=== PATIENT | male | born 1945 ===

== ENCOUNTER 2017-06-07 07:13 | Day surgery (SDC) | payer MEDICARE, MEDICAID ==
[2017-06-07 08:03] VITALS: O2SAT 100
[2017-06-07] MEDS ORDERED: Lactated Ringer's 500 ML IV SCH (09:00)
[2017-06-07] MEDS ORDERED: Propofol 10 mg/ml Inj (20 ML) ONE (09:08)
[2017-06-07] MEDS ORDERED: Lactated Ringer's 1,000 ML IV ONE ×2 (09:13)
[2017-06-07 10:16] VITALS: PULSE 61; TEMP 97.1
[2017-06-07 10:52] VITALS: RESP 15
[2017-06-07 10:54] VITALS: BP 125/70
== END 2017-06-07 10:50 | disposition home or self-care (01) ==
LOC: C.ENDO 07:13
PROVIDERS: ATTEND Internal Medicine Gastroenterology
DX: Z12.11 Encounter for screening for malignant neoplasm of colon (principal); Z79.899 Other long term (current) drug therapy; Z79.4 Long term (current) use of insulin; Z95.1 Presence of aortocoronary bypass graft; E11.9 Type 2 diabetes mellitus without complications; E78.5 Hyperlipidemia, unspecified; I10 Essential (primary) hypertension; K59.00 Constipation, unspecified; I25.10 Atherosclerotic heart disease of native coronary artery without angina pectoris; M19.90 Unspecified osteoarthritis, unspecified site; Z82.49 Family history of ischemic heart disease and other diseases of the circulatory system; Z83.3 Family history of diabetes mellitus; K64.8 Other hemorrhoids; D12.2 Benign neoplasm of ascending colon
CPT/HCPCS: 45380; 82948; 88305; J2704; J7120

== ENCOUNTER 2017-09-17 09:59 | Inpatient (IN) | payer MEDICARE, MEDICAID ==
[2017-09-17 10:00] VITALS: BMI 31.4
--- NOTE | 2017-09-17 10:36 | C.PDOC ---
History Of Present Illness VIA TRANS 71-YEAR-OLD MALE, PRESENTS TO THE EMERGENCY DEPARTMENT, PATIENT IS REFERRED BY PMD AND DR ALVA FOR ADMISSION, PENDING COLON MASS SURGERY ON 09/19. R SIDED ABD PAIN X 1 MO. NO FEVER, NV. EXAM NEG MDM OLD RECORDS REVIEWED. SP FULL OUTPT EVAL OF ABD PAIN. Time Seen by Provider: 09/17/17 10:24 Chief Complaint (Nursing): Medical Clearance History Per: Patient History/Exam Limitations: no limitations Current Symptoms Are (Timing): Still Present Severity: Moderate Past Medical History Reviewed: Historical Data, Nursing Documentation, Vital Signs Vital Signs: Last Vital Signs Temp 98.0 F 09/17/17 15:00 Pulse 66 09/17/17 15:00 Resp 20 09/17/17 15:00 BP 154/72 H 09/17/17 15:00 Pulse Ox 96 09/17/17 15:00 - Medical History PMH: Arthritis, HTN, Hypercholesterolemia Surgical History: CABG (1999), Endoscopy Family History: States: No Known Family Hx - Social History Hx Alcohol Use: No Hx Substance Use: No Review Of Systems Constitutional: Negative for: Fever, Chills Cardiovascular: Negative for: Chest Pain, Palpitations Respiratory: Negative for: Shortness of Breath Gastrointestinal: Negative for: Nausea, Vomiting, Abdominal Pain Musculoskeletal: Negative for: Back Pain Skin: Negative for: Rash Neurological: Negative for: Weakness, Numbness, Headache, Dizziness Physical Exam - Physical Exam Appears: Non-toxic, No Acute Distress Skin: Normal Color, Warm, Dry, No Rash Head: Normacephalic Eye(s): bilateral: Normal Inspection, PERRL, EOMI Nose: Normal Oral Mucosa: Moist Lips: Normal Appearing Neck: Normal ROM Cardiovascular: Rhythm Regular, No Murmur Respiratory: Normal Breath Sounds, No Accessory Muscle Use Gastrointestinal/Abdominal: Soft, No Tenderness Extremity: Normal ROM, No Deformity, No Swelling Neurological/Psych: Oriented x3, Normal Speech ED Course And Treatment - Laboratory Results Result Diagrams: 09/17/17 10:50 09/17/17 10:50 ECG: Interpreted By Me ECG Rhythm: 1st Degree HB Rate From EC O2 Sat by Pulse Oximetry: 99 (RA) Pulse Ox Interpretation: Normal - Radiology CXR: Interpreted by Me CXR Interpretation: Yes: No Acute Disease Progress - Re-Evaluation Re-evaluation Note: 09/17/17 10:33 D/W DR NERI: STATES PT REQUIRES MED CLEARANCE. ADMIT TO HIS SERVICE, WILL CONSULT HOSP AND DR ARCOS. SURG RESIDENT NOTIFIED - Data Reviewed Data Reviewed: Lab, Diagnostic imaging, EKG, Old records Medical Decision Making Medical Decision Making: OLD RECORDS REVIEWED. SP FULL OUTPT EVAL OF ABD PAIN. Disposition Counseled Patient/Family Regarding: Studies Performed, Diagnosis - Disposition Disposition: HOSPITALIZED Disposition Time: 10:36 Condition: STABLE - POA Present On Arrival: Poor Glycemic Control - Clinical Impression Clinical Impression: Colonic mass, Abdominal pain - Scribe Statement The provider has reviewed the documentation as recorded by the Scribe (Julieta Firtz) All medical record entries made by the Scribe were at my direction and personally dictated by me. I have reviewed the chart and agree that the record accurately reflects my personal performance of the history, physical exam, medical decision making, and the department course for this patient. I have also personally directed, reviewed, and agree with the discharge instructions and disposition. Decision To Admit - Pt Status Changed To: Hospital Disposition Of: Inpatient - Admit Certification Admit to Inpatient:: After my assessment, the patient will require hospitalization for at least two midnights. This is because of the severity of symptoms shown, intensity of services needed, and/or the medical risk in this patient being treated as an outpatient. - InPatient: Physician Admission Certification: I certify that this patient requires 2 or more midnights of care for the following reason:: SEE NOTE - . Bed Request Type: Regular Admitting Physician: Arian Neri Patient Diagnosis: Colonic mass, Abdominal pain
[2017-09-17] MEDS ORDERED: Sodium Chloride 0.9% 1,000 ML IV ONE (10:38)
[2017-09-17] MEDS ORDERED: Sodium Chloride 0.9% 1,000 ML ONE (10:52)
[2017-09-17 11:03] LABS: BASO # 0.1 K/uL (0.0-0.2); BASO % 0.8 % (0.0-2.0); EOS # 0.3 K/uL (0.0-0.7); EOS % 3.8 % (0.0-4.0); HEMOGLOBIN 11.7 g/dL (12.0-18.0); LYMPH % 27.5 % (20.0-40.0); MEAN CELL VOLUME 80.3 fL (80.0-94.0); MEAN CORPUSCULAR HGB CONC 34.8 g/dL (33.0-37.0); MEAN PLATELET VOLUME 9.9 fL (7.2-11.7); MONO # 0.3 K/uL (0.0-0.8); MONO % 4.1 % (0.0-10.0); NEUT # 4.7 K/uL (1.8-7.0); NEUT % 63.8 % (50.0-75.0); RBC 4.2 Mil/uL (4.40-5.90); RED CELL DISTRIBUTION WIDTH 14.3 % (11.5-14.5); WHITE BLOOD COUNT 7.3 K/uL (4.8-10.8)
[2017-09-17 11:04] LABS: PROTHROMBIN TIME 11.4 SECONDS (9.7-12.2)
[2017-09-17 11:09] LABS: ALB/GLOB RATIO 1.1 (1.0-2.1); ALT/SGPT 30 U/L (21-72); AST/SGOT 25 U/L (17-59); BLOOD UREA NITROGEN 26 mg/dL (9-20); CALCIUM 9.1 mg/dl (8.6-10.4); GFR AFRICAN-AMERICAN > 60; GFR NON-AFRICAN AMERICAN 54
[2017-09-17] MEDS ORDERED: (Novolog Mix 70/30) Insulin Aspart/Insulin Aspar 100 units/ml SC PRN (11:21)
--- NOTE | 2017-09-17 11:38 | RAD ---
HISTORY: Pre Op COMPARISON: Chest radiographs 06/29/2017. TECHNIQUE: Chest PA and lateral FINDINGS: LUNGS: No acute infiltrate bilaterally. Chronic fibrotic changes in the inferior left lung zone. PLEURA: No significant pleural effusion identified. No pneumothorax apparent. CARDIOVASCULAR: Normal. OSSEOUS STRUCTURES: Sternotomy wires again noted. VISUALIZED UPPER ABDOMEN: Normal. OTHER FINDINGS: None. IMPRESSION: No acute cardiopulmonary disease appreciated. Stable left basilar fibrosis.
[2017-09-17 11:40] LABS: URINE BILIRUBIN NEGATIVE (NEGATIVE); URINE BLOOD NEGATIVE (NEGATIVE); URINE CLARITY Clear (Clear); URINE COLOR Yellow (YELLOW); URINE GLUCOSE (UA) 3+ mg/dL (Normal); URINE HYALINE CAST 0-2 /lpf (0-2); URINE LEUKOCYTE ESTERASE NEG Leu/uL (Negative); URINE PROTEIN 1+ mg/dL (NEGATIVE); URINE UROBILINOGEN NORMAL mg/dL (0.2-1.0)
--- NOTE | 2017-09-17 11:40 | CP.PCM.HP ---
<Jaden Dalal - Last Filed: 09/17/17 11:37> History of Present Illness - History of Present Illness History of Present Illness: General Surgery H&P for Dr. Aranda This is a 71M with a PMH of DM, HTN, CAD, HLD, and a surgical history of open heart quadruple bypass over ten years ago. In May the patient underwnet his first colonoscopy which was significant for 40mm villous polypoid lesion at the ileocecal valve. 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 Patient denies any unintentional weight changes however he does report a vague discomfort n his right lower abdomen that is chronic. He denies any fevers chills chest pain nausea vomiting or diarrhea. PMH:DM, HTN, CAD, HLD PSH: Open heart bypass X4, Eye surgery, Testicular surgery ALL: NKDA Social: Denies Tobacco, ETOH, Drugs Present on Admission - Present on Admission Any Indicators Present on Admission: No Review of Systems - Review of Systems All systems: reviewed and no additional remarkable complaints except - Constitutional Constitutional: absent: Anorexia, Chills, Fever - EENT Eyes: absent: Change in Vision, Loss of Vision Ears: absent: Disequilibrium, Dizziness - Cardiovascular Cardiovascular: absent: Chest Pain, Dyspnea - Respiratory Respiratory: absent: Cough, Dyspnea, Dyspnea on Exertion - Gastrointestinal Gastrointestinal: Abdominal Pain. absent: Diarrhea, Nausea, Vomiting - Genitourinary Genitourinary: absent: Difficulty Urinating, Dysuria - Musculoskeletal Musculoskeletal: absent: Arthralgias, Myalgias Past Patient History - Past Medical History & Family History Past Medical History?: Yes - Past Social History Smoking Status: Never Smoked - CARDIAC Hx Hypercholesterolemia: Yes Hx Hypertension: Yes Hx Pacemaker: No - PULMONARY Hx Respiratory Disorders: No - NEUROLOGICAL Hx Paralysis: No - HEENT Hx HEENT Problems: Yes - RENAL Hx Chronic Kidney Disease: No - ENDOCRINE/METABOLIC Hx Endocrine Disorders: Yes Hx Diabetes Mellitus Type 1: Yes - HEMATOLOGICAL/ONCOLOGICAL Hx Blood Transfusions: No - INTEGUMENTARY Hx Dermatological Problems: No - MUSCULOSKELETAL/RHEUMATOLOGICAL Hx Arthritis: Yes - GASTROINTESTINAL Hx Gastrointestinal Disorders: No - GENITOURINARY/GYNECOLOGICAL Hx Genitourinary Disorders: No - PSYCHIATRIC Hx Substance Use: No - SURGICAL HISTORY Hx Coronary Artery Bypass Graft: Yes (1999) - ANESTHESIA Hx Anesthesia Reactions: No Hx Malignant Hyperthermia: No Meds Allergies/Adverse Reactions: Allergies Allergy/AdvReac Type Severity Reaction Status Date / Time No Known Allergies Allergy Verified 09/17/17 10:07 Physical Exam - Constitutional Appears: Non-toxic, No Acute Distress - Head Exam Head Exam: ATRAUMATIC, NORMOCEPHALIC - Eye Exam Eye Exam: EOMI, Normal appearance - ENT Exam ENT Exam: Mucous Membranes Moist - Respiratory Exam Respiratory Exam: NORMAL BREATHING PATTERN - Cardiovascular Exam Cardiovascular Exam: +S1, +S2 - GI/Abdominal Exam GI & Abdominal Exam: Normal Bowel Sounds, Soft, Tenderness (Mild tenderness to deep palpation ). absent: Distended, Firm, Guarding, Hernia, Rigid - Rectal Exam Additional comments: Perianal Skin tag - Extremities Exam Extremities exam: Positive for: normal inspection Additional comments: radial pulse 2+ - Neurological Exam Neurological exam: Alert, Oriented x3 - Psychiatric Exam Psychiatric exam: Normal Affect, Normal Mood - Skin Skin Exam: Dry, Intact Results - Vital Signs Recent Vital Signs: Last Vital Signs Temp 97.5 F L 09/17/17 10:05 Pulse 72 09/17/17 10:05 Resp 16 09/17/17 10:05 BP 120/63 09/17/17 10:05 Pulse Ox 99 09/17/17 11:07 - Labs Result Diagrams: 09/17/17 10:50 09/17/17 10:50 Labs: Laboratory Results - last 24 hr 09/17/17 09/17/17 09/17/17 10:50 10:50 10:50 WBC 7.3 RBC 4.20 L Hgb 11.7 L Hct 33.7 L MCV 80.3 MCH 28.0 MCHC 34.8 RDW 14.3 Plt Count 197 MPV 9.9 Neut % (Auto) 63.8 Lymph % (Auto) 27.5 Sebastian % (Auto) 4.1 Eos % (Auto) 3.8 Baso % (Auto) 0.8 Neut # (Auto) 4.7 Lymph # (Auto) 2.0 Sebastian # (Auto) 0.3 Eos # (Auto) 0.3 Baso # (Auto) 0.1 PT 11.4 INR 1.0 APTT 35 H Sodium 138 Potassium 4.9 Chloride 102 Carbon Dioxide 27 Anion Gap 14 BUN 26 H Creatinine 1.3 Est GFR ( Amer) > 60 Est GFR (Non-Af Amer) 54 Random Glucose 315 H Calcium 9.1 Total Bilirubin 0.7 AST 25 ALT 30 Alkaline Phosphatase 86 Total Protein 7.4 Albumin 4.0 Globulin 3.5 Albumin/Globulin Ratio 1.1 Blood Type Antibody Screen 09/17/17 10:50 WBC RBC Hgb Hct MCV MCH MCHC RDW Plt Count MPV Neut % (Auto) Lymph % (Auto) Sebastian % (Auto) Eos % (Auto) Baso % (Auto) Neut # (Auto) Lymph # (Auto) Sebastian # (Auto) Eos # (Auto) Baso # (Auto) PT INR APTT Sodium Potassium Chloride Carbon Dioxide Anion Gap BUN Creatinine Est GFR ( Amer) Est GFR (Non-Af Amer) Random Glucose Calcium Total Bilirubin AST ALT Alkaline Phosphatase Total Protein Albumin Globulin Albumin/Globulin Ratio Blood Type O POSITIVE Antibody Screen Negative Assessment & Plan - Assessment and Plan (Free Text) Assessment: 71M with Colon mass Plan: Admit to Dr. Aranda service Restart Home medications Consult Medicine for medical management Consult Dr. Raphael Cardiology AM labs Plan for OR later this week D/W Dr. Manoj Dalal PGY2 <Arian Aranda B - Last Filed: 09/21/17 17:01> Results - Vital Signs Recent Vital Signs: Last Vital Signs Temp 98.7 F 09/21/17 15:50 Pulse 68 09/21/17 15:50 Resp 18 09/21/17 15:50 BP 152/74 H 09/21/17 15:50 Pulse Ox 95 09/21/17 15:50 - Labs Result Diagrams: 09/21/17 07:38 09/21/17 07:38 Labs: Laboratory Results - last 24 hr 09/20/17 09/21/17 09/21/17 20:55 06:19 07:38 WBC RBC Hgb Hct MCV MCH MCHC RDW Plt Count MPV Neut % (Auto) Lymph % (Auto) Sebastian % (Auto) Eos % (Auto) Baso % (Auto) Neut # (Auto) Lymph # (Auto) Sebastian # (Auto) Eos # (Auto) Baso # (Auto) Sodium 139 Potassium 4.1 Chloride 105 Carbon Dioxide 26 Anion Gap 13 BUN 14 Creatinine 1.1 Est GFR ( Amer) > 60 Est GFR (Non-Af Amer) > 60 POC Glucose (mg/dL) 239 H 204 H Random Glucose 210 H Calcium 8.6 Phosphorus 2.4 L Magnesium 1.6 Total Bilirubin 0.5 AST 30 ALT 21 D Alkaline Phosphatase 70 Total Protein 6.5 Albumin 3.2 L Globulin 3.3 Albumin/Globulin Ratio 1.0 09/21/17 09/21/17 09/21/17 07:38 11:21 16:28 WBC 10.5 RBC 3.84 L Hgb 10.7 L Hct 30.9 L MCV 80.5 MCH 27.8 MCHC 34.5 RDW 14.2 Plt Count 168 MPV 9.6 Neut % (Auto) 79.0 H Lymph % (Auto) 14.0 L Sebastian % (Auto) 4.1 Eos % (Auto) 2.4 Baso % (Auto) 0.5 Neut # (Auto) 8.3 H Lymph # (Auto) 1.5 Sebastian # (Auto) 0.4 Eos # (Auto) 0.3 Baso # (Auto) 0.1 Sodium Potassium Chloride Carbon Dioxide Anion Gap BUN Creatinine Est GFR ( Amer) Est GFR (Non-Af Amer) POC Glucose (mg/dL) 315 H 256 H Random Glucose Calcium Phosphorus Magnesium Total Bilirubin AST ALT Alkaline Phosphatase Total Protein Albumin Globulin Albumin/Globulin Ratio Attending/Attestation - Attestation I have personally seen and examined this patient.: Yes I have fully participated in the care of the patient.: Yes I have reviewed all pertinent clinical information: Yes Notes (Text): Pt is seen and examined at bedside Agree with above note and assessment Pt with Ascending colon mass, Tubulovillous adenoma Pt is c/o abdominal pain, intermittent with bloating Abdomen: Soft, NT, ND Labs and radiology reviewed Plan: Cardiology clearance, Bowel prep Preop antibiotics Plan d.w pt in detail Risk and benefit explained in detail.
--- NOTE | 2017-09-17 14:13 | CP.PCM.CON ---
<Meenu Egan - Last Filed: 09/17/17 16:57> History of Present Illness - History of Present Illness History of Present Illness: Full Code Denies Advanced Directive Health Proxy: Joellen Pereyra () #[phone] Medicine Consult: 71 year old male with past medical history as noted below is in the hospital for removal of a colonic mass. Patient underwent a colonoscopy in May 2017 which found a tubulovillous adenoma. Patient states he has minor right lower abdominal pain but otherwise states he has no complaints. Patient denies chest pain, shortness of breath, palpitations, fever, nausea, vomiting, diarrhea , constipation or dysuria. PMD: Dr. 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 Past Surgical History: CABG 15 years ago; Cataract surgery; Hernia repair 40 years ago; Colonoscopy 05/2017 Medications: Losartan 100mg daily; Novolog 70/30 (patient does not know how many units he uses daily); Lipitor 80mg HS; Aspirin 81mg daily; Tramadol 50mg po tid; Metoprolol Succinate 25mg po daily Allergies: NKDA Family History: Dad - heart disease; Mom - diabetes Social History: Lives with ; retired; worked delivering meat; Denies smoking , alcohol or illicit drug use Review of Systems - Constitutional Constitutional: absent: Chills, Fever, Headache - EENT Eyes: Blurred Vision, Other (blind in the left eye; decreased vision in the right eye ) Nose/Mouth/Throat: absent: Nasal Congestion, Sore Throat - Cardiovascular Cardiovascular: absent: Chest Pain, Chest Pain at Rest, Dyspnea, Dyspnea on Exertion, Palpitations, Pedal Edema - Respiratory Respiratory: absent: Dyspnea - Gastrointestinal Gastrointestinal: Abdominal Pain (minor right lower abdominal pain ). absent: Constipation, Diarrhea, Nausea, Vomiting - Genitourinary Genitourinary: absent: Dysuria - Musculoskeletal Musculoskeletal: absent: Numbness, Tingling - Neurological Neurological: absent: Dizziness, Headaches - Endocrine Endocrine: absent: Palpitations Past Patient History - Past Medical History & Family History Past Medical History?: Yes - Past Social History Smoking Status: Never Smoked - CARDIAC Hx Hypercholesterolemia: Yes Hx Hypertension: Yes Hx Pacemaker: No - PULMONARY Hx Respiratory Disorders: No - NEUROLOGICAL Hx Paralysis: No - HEENT Hx HEENT Problems: Yes - RENAL Hx Chronic Kidney Disease: No - ENDOCRINE/METABOLIC Hx Endocrine Disorders: Yes Hx Diabetes Mellitus Type 1: Yes - HEMATOLOGICAL/ONCOLOGICAL Hx Blood Transfusions: No - INTEGUMENTARY Hx Dermatological Problems: No - MUSCULOSKELETAL/RHEUMATOLOGICAL Hx Arthritis: Yes - GASTROINTESTINAL Hx Gastrointestinal Disorders: No - GENITOURINARY/GYNECOLOGICAL Hx Genitourinary Disorders: No - PSYCHIATRIC Hx Substance Use: No - SURGICAL HISTORY Hx Coronary Artery Bypass Graft: Yes (1999) - ANESTHESIA Hx Anesthesia Reactions: No Hx Malignant Hyperthermia: No Meds Allergies/Adverse Reactions: Allergies Allergy/AdvReac Type Severity Reaction Status Date / Time No Known Allergies Allergy Verified 09/17/17 10:07 - Medications Medications: Current Medications Enoxaparin Sodium (Lovenox) 30 mg SC 1000,2200 [facility] Home Med (Atorvastatin [Lipitor]) 1 tab PO DAILY [facility] Sodium Chloride (Sodium Chloride 0.9%) 1,000 mls @ 100 mls/hr IV .Q10H ONE Stop: 09/17/17 20:37 Last Admin: 09/17/17 10:55 Dose: 100 mls/hr Insulin Aspart (Novolog) 0 unit SC ACHS [facility] PRN Reason: Protocol Losartan Potassium (Cozaar) 1 mg PO DAILY [facility] Metoprolol Succinate (Toprol Xl) 25 mg PO DAILY [facility] Spironolactone (Aldactone) 25 mg PO DAILY [facility] Physical Exam - Constitutional Appears: No Acute Distress - Head Exam Head Exam: ATRAUMATIC, NORMAL INSPECTION - Eye Exam Additional comments: Left eye- clouding - ENT Exam ENT Exam: Mucous Membranes Dry - Respiratory Exam Respiratory Exam: NORMAL BREATHING PATTERN Additional comments: Bilateral Lower Lungs - crackles - Cardiovascular Exam Cardiovascular Exam: REGULAR RHYTHM, +S1, +S2 - GI/Abdominal Exam GI & Abdominal Exam: Normal Bowel Sounds, Soft. absent: Tenderness - Extremities Exam Extremities exam: Positive for: normal capillary refill, normal inspection, pedal pulses present - Neurological Exam Neurological exam: Alert, CN II-XII Intact, Oriented x3 - Expanded Neurological Exam Expanded Patient oriented to: person, place, time Neuro motor strength exam: Left Upper Extremity: 5, Right Upper Extremity: 5, Left Lower Extremity: 5, Right Lower Extremity: 5 Coma Scale Eye Opening: SPONTANEOUS Coma Scale Motor Response: OBEYS COMMANDS - Psychiatric Exam Psychiatric exam: Normal Affect, Normal Mood - Skin Skin Exam: Normal Color Results - Vital Signs Recent Vital Signs: Last Vital Signs Temp 98.1 F 09/17/17 12:03 Pulse 64 09/17/17 12:03 Resp 18 09/17/17 12:03 BP 142/70 09/17/17 12:03 Pulse Ox 96 09/17/17 12:03 - Labs Result Diagrams: 09/17/17 10:50 09/17/17 10:50 Labs: Laboratory Results - last 24 hr 09/17/17 09/17/17 09/17/17 10:50 10:50 10:50 WBC 7.3 RBC 4.20 L Hgb 11.7 L Hct 33.7 L MCV 80.3 MCH 28.0 MCHC 34.8 RDW 14.3 Plt Count 197 MPV 9.9 Neut % (Auto) 63.8 Lymph % (Auto) 27.5 [place] % (Auto) 4.1 Eos % (Auto) 3.8 Baso % (Auto) 0.8 Neut # (Auto) 4.7 Lymph # (Auto) 2.0 [place] # (Auto) 0.3 Eos # (Auto) 0.3 Baso # (Auto) 0.1 PT 11.4 INR 1.0 APTT 35 H Sodium 138 Potassium 4.9 Chloride 102 Carbon Dioxide 27 Anion Gap 14 BUN 26 H Creatinine 1.3 Est GFR ( Amer) > 60 Est GFR (Non-Af Amer) 54 POC Glucose (mg/dL) Random Glucose 315 H Calcium 9.1 Total Bilirubin 0.7 AST 25 ALT 30 Alkaline Phosphatase 86 Total Protein 7.4 Albumin 4.0 Globulin 3.5 Albumin/Globulin Ratio 1.1 Urine Color Urine Clarity Urine pH Ur Specific [place] Urine Protein Urine Glucose (UA) Urine Ketones Urine Blood Urine Nitrate Urine Bilirubin Urine Urobilinogen Ur Leukocyte Esterase Urine WBC (Auto) Urine RBC (Auto) Hyaline Casts Blood Type Antibody Screen 09/17/17 09/17/17 09/17/17 10:50 10:56 12:05 WBC RBC Hgb Hct MCV MCH MCHC RDW Plt Count MPV Neut % (Auto) Lymph % (Auto) [place] % (Auto) Eos % (Auto) Baso % (Auto) Neut # (Auto) Lymph # (Auto) [place] # (Auto) Eos # (Auto) Baso # (Auto) PT INR APTT Sodium Potassium Chloride Carbon Dioxide Anion Gap BUN Creatinine Est GFR ( Amer) Est GFR (Non-Af Amer) POC Glucose (mg/dL) 210 H Random Glucose Calcium Total Bilirubin AST ALT Alkaline Phosphatase Total Protein Albumin Globulin Albumin/Globulin Ratio Urine Color Yellow Urine Clarity Clear Urine pH 6.0 Ur Specific [place] 1.009 Urine Protein 1+ H Urine Glucose (UA) 3+ H Urine Ketones Negative Urine Blood Negative Urine Nitrate Negative Urine Bilirubin Negative Urine Urobilinogen Normal Ur Leukocyte Esterase Neg Urine WBC (Auto) < 1 Urine RBC (Auto) 1 Hyaline Casts 0-2 Blood Type O POSITIVE Antibody Screen Negative Assessment & Plan - Assessment and Plan (Free Text) Assessment: 1.) Tubulousvillous Adenoma - Management per primary team: Dr. Aranda - Pending Medical Optimization - Detski Score: 5 --> 6% risk of complications - EKG: NSR at 60bpm; Type I AV block; prior ischemia shown on leads I and II - Chest Xray: No acute cardiopulmonary disease appreciated. Stable left basilar fibrosis. - ECHO (07/05/17): LVEF 65%; mild left ventricular hypertrophy (please see report for full details) - Cardio Consult: Dr. Raphael --> help appreciated 2.) History of CABG in 2002 - Continue home medications * Losartan 100mg daily * Aspirin 81mg po daily * Metoprolol Succinate 25mg daily * Crestor 40mg po HS - ECHO (07/05/17): LVEF 65%; mild left ventricular hypertrophy (please see report for full details) 3.) History of HTN Continue home medications * Metoprolol Succinate 25mg daily * Losartan 100mg daily 4.) History of CAD - Crestor 40mg po HS - Lipid Profile (07/30/17): Triglycerides 107; Total Cholesterol 233; LDL 108; HDL 56 5.) History of DM Type II - ISS - Patient does not know how many usints of Novolog he uses therefor will monitor accuchecks based on total units used will restart Novolog - Accuchecks - Hypoglycemia Protocol 6.) Prophylaxis - Lovenox 40SC - will be placed on hold tomorrow 09/18/17 - SCDs - GI prophylaxis not indicated at this time Case discussed with Dr. Jeff Egan PGY-1 <Alejandro Aguilar - Last Filed: 09/17/17 19:04> Meds - Medications Medications: Current Medications Dextrose (Dextrose 50% Inj) 0 ml IV STAT PRN; Protocol PRN Reason: Hypoglycemia Protocol Dextrose (Glutose 15) 0 gm PO ONCE PRN; Protocol PRN Reason: Hypoglycemia Protocol Enoxaparin Sodium (Lovenox) 40 mg SC DAILY [facility] Glucagon (Glucagen Diagnostic Kit) 0 mg IM STAT PRN; Protocol PRN Reason: Hypoglycemia Protocol Dextrose (Dextrose 5% In Water 1000 Ml) 1,000 mls @ 0 mls/hr IV .Q0M PRN; Protocol; Per Protocol PRN Reason: Hypoglycemia Protocol Insulin Aspart (Novolog) 0 unit SC ACHS [facility] PRN Reason: Protocol Last Admin: 09/17/17 16:47 Dose: 4 unit Losartan Potassium (Cozaar) 100 mg PO DAILY [facility] Metoprolol Succinate (Toprol Xl) 25 mg PO DAILY [facility] Rosuvastatin Calcium (Crestor) 40 mg PO HS [facility] Spironolactone (Aldactone) 25 mg PO DAILY [facility] Results - Vital Signs Recent Vital Signs: Last Vital Signs Temp 98.0 F 09/17/17 15:00 Pulse 66 09/17/17 15:00 Resp 20 09/17/17 15:00 BP 154/72 H 09/17/17 15:00 Pulse Ox 99 09/17/17 16:55 - Labs Result Diagrams: 09/17/17 10:50 09/17/17 10:50 Labs: Laboratory Results - last 24 hr 09/17/17 09/17/17 09/17/17 10:50 10:50 10:50 WBC 7.3 RBC 4.20 L Hgb 11.7 L Hct 33.7 L MCV 80.3 MCH 28.0 MCHC 34.8 RDW 14.3 Plt Count 197 MPV 9.9 Neut % (Auto) 63.8 Lymph % (Auto) 27.5 [place] % (Auto) 4.1 Eos % (Auto) 3.8 Baso % (Auto) 0.8 Neut # (Auto) 4.7 Lymph # (Auto) 2.0 [place] # (Auto) 0.3 Eos # (Auto) 0.3 Baso # (Auto) 0.1 PT 11.4 INR 1.0 APTT 35 H Sodium 138 Potassium 4.9 Chloride 102 Carbon Dioxide 27 Anion Gap 14 BUN 26 H Creatinine 1.3 Est GFR ( Amer) > 60 Est GFR (Non-Af Amer) 54 POC Glucose (mg/dL) Random Glucose 315 H Calcium 9.1 Total Bilirubin 0.7 AST 25 ALT 30 Alkaline Phosphatase 86 Total Protein 7.4 Albumin 4.0 Globulin 3.5 Albumin/Globulin Ratio 1.1 Urine Color Urine Clarity Urine pH Ur Specific [place] Urine Protein Urine Glucose (UA) Urine Ketones Urine Blood Urine Nitrate Urine Bilirubin Urine Urobilinogen Ur Leukocyte Esterase Urine WBC (Auto) Urine RBC (Auto) Hyaline Casts Blood Type Antibody Screen 09/17/17 09/17/17 09/17/17 10:50 10:56 12:05 WBC RBC Hgb Hct MCV MCH MCHC RDW Plt Count MPV Neut % (Auto) Lymph % (Auto) [place] % (Auto) Eos % (Auto) Baso % (Auto) Neut # (Auto) Lymph # (Auto) [place] # (Auto) Eos # (Auto) Baso # (Auto) PT INR APTT Sodium Potassium Chloride Carbon Dioxide Anion Gap BUN Creatinine Est GFR ( Amer) Est GFR (Non-Af Amer) POC Glucose (mg/dL) 210 H Random Glucose Calcium Total Bilirubin AST ALT Alkaline Phosphatase Total Protein Albumin Globulin Albumin/Globulin Ratio Urine Color Yellow Urine Clarity Clear Urine pH 6.0 Ur Specific [place] 1.009 Urine Protein 1+ H Urine Glucose (UA) 3+ H Urine Ketones Negative Urine Blood Negative Urine Nitrate Negative Urine Bilirubin Negative Urine Urobilinogen Normal Ur Leukocyte Esterase Neg Urine WBC (Auto) < 1 Urine RBC (Auto) 1 Hyaline Casts 0-2 Blood Type O POSITIVE Antibody Screen Negative 09/17/17 16:07 WBC RBC Hgb Hct MCV MCH MCHC RDW Plt Count MPV Neut % (Auto) Lymph % (Auto) [place] % (Auto) Eos % (Auto) Baso % (Auto) Neut # (Auto) Lymph # (Auto) [place] # (Auto) Eos # (Auto) Baso # (Auto) PT INR APTT Sodium Potassium Chloride Carbon Dioxide Anion Gap BUN Creatinine Est GFR ( Amer) Est GFR (Non-Af Amer) POC Glucose (mg/dL) 255 H Random Glucose Calcium Total Bilirubin AST ALT Alkaline Phosphatase Total Protein Albumin Globulin Albumin/Globulin Ratio Urine Color Urine Clarity Urine pH Ur Specific [place] Urine Protein Urine Glucose (UA) Urine Ketones Urine Blood Urine Nitrate Urine Bilirubin Urine Urobilinogen Ur Leukocyte Esterase Urine WBC (Auto) Urine RBC (Auto) Hyaline Casts Blood Type Antibody Screen Attending/Attestation - Attestation I have personally seen and examined this patient.: Yes I have fully participated in the care of the patient.: Yes I have reviewed all pertinent clinical information: Yes Notes (Text): 09/17/17 19:04 Patient was seen and examined with the resident Dr. Egan History, Physical, Assessment and Plan and orders were discussed with Dr. Egan. Alejandro Aguilar D.O.
[2017-09-17] MEDS: (Novolog) Insulin Aspart, Recombinant 100 u/ml 10 ml vial SC SCH ×2 (16:47→21:10)
[2017-09-17] MEDS ORDERED: Dextrose 50% SYRINGE Inj (50 ml) IV PRN (17:02)
[2017-09-17] MEDS ORDERED: Glucagon Recombinant 1 mg Inj IM PRN (17:02)
[2017-09-17] MEDS: Metoprolol Succinate 25 mg XL Tab PO SCH (21:08)
[2017-09-17] MEDS ORDERED: Enoxaparin 30 mg Syringe SC SCH (22:00)
--- NOTE | 2017-09-18 07:25 | CP.PCM.PN ---
<Meenu Egan NitinAnali - Last Filed: 09/18/17 15:23> Subjective - Date & Time of Evaluation Date of Evaluation: 09/18/17 Time of Evaluation: 07:00 - Subjective Subjective: Medicine Progress Note: Patient was seen and examined at bedside in the AM. Patient is not in acute stress. Patient states he has minor right lower abdominal pain but otherwise states he has no complaints. Patient denies chest pain, shortness of breath, palpitations, fever, nausea, vomiting, diarrhea, constipation or dysuria. Objective - Vital Signs/Intake and Output Vital Signs (last 24 hours): Temp Pulse Resp BP Pulse Ox 98.1 F 64 20 141/68 98 09/18/17 00:04 09/18/17 00:04 09/18/17 00:04 09/18/17 00:04 09/18/17 00:04 Intake and Output: 09/18/17 09/18/17 06:59 18:59 Intake Total 1780 Balance 1780 - Medications Medications: Current Medications Dextrose (Dextrose 50% Inj) 0 ml IV STAT PRN; Protocol PRN Reason: Hypoglycemia Protocol Dextrose (Glutose 15) 0 gm PO ONCE PRN; Protocol PRN Reason: Hypoglycemia Protocol Enoxaparin Sodium (Lovenox) 40 mg SC DAILY [facility] Glucagon (Glucagen Diagnostic Kit) 0 mg IM STAT PRN; Protocol PRN Reason: Hypoglycemia Protocol Dextrose (Dextrose 5% In Water 1000 Ml) 1,000 mls @ 0 mls/hr IV .Q0M PRN; Protocol; Per Protocol PRN Reason: Hypoglycemia Protocol Insulin Aspart (Novolog) 0 unit SC ACHS [facility] PRN Reason: Protocol Last Admin: 09/17/17 21:10 Dose: Not Given Losartan Potassium (Cozaar) 100 mg PO DAILY [facility] Metoprolol Succinate (Toprol Xl) 25 mg PO DAILY [facility] Last Admin: 09/17/17 21:08 Dose: 25 mg Rosuvastatin Calcium (Crestor) 40 mg PO HS [facility] Last Admin: 09/17/17 21:08 Dose: 40 mg Spironolactone (Aldactone) 25 mg PO DAILY [facility] - Labs Labs: 09/17/17 10:50 09/17/17 10:50 PT 11.4 SECONDS (9.7-12.2) 09/17/17 10:50 INR 1.0 09/17/17 10:50 APTT 35 SECONDS (21-34) H 09/17/17 10:50 - Constitutional Appears: No Acute Distress - Head Exam Head Exam: ATRAUMATIC, NORMAL INSPECTION - Eye Exam Eye Exam: EOMI, Normal appearance Additional comments: Left eye- clouding - ENT Exam ENT Exam: Mucous Membranes Moist - Respiratory Exam Respiratory Exam: NORMAL BREATHING PATTERN Additional comments: Bilateral Lower Lungs - crackles - Cardiovascular Exam Cardiovascular Exam: REGULAR RHYTHM, +S1, +S2 - GI/Abdominal Exam GI & Abdominal Exam: Soft, Normal Bowel Sounds. absent: Tenderness - Extremities Exam Extremities Exam: Normal Inspection - Neurological Exam Neurological Exam: Alert, Awake, Oriented x3 - Psychiatric Exam Psychiatric exam: Normal Affect - Skin Skin Exam: Normal Color Assessment and Plan - Assessment and Plan (Free Text) Assessment: 1.) Tubulousvillous Adenoma - Management per primary team: Dr. Aranda - Medically Optimized pending Cardiology - Detski Score: 5 --> 6% risk of complications - EKG: NSR at 60bpm; Type I AV block; prior ischemia shown on leads I and II - Chest Xray: No acute cardiopulmonary disease appreciated. Stable left basilar fibrosis. - ECHO (07/05/17): LVEF 65%; mild left ventricular hypertrophy (please see report for full details) - Cardio Consult: Dr. Raphael --> help appreciated 2.) History of CABG in 2002 - Continue home medications * Losartan 100mg daily * Aspirin 81mg po daily - on hold * Metoprolol Succinate 25mg daily * Crestor 40mg po HS - ECHO (07/05/17): LVEF 65%; mild left ventricular hypertrophy (please see report for full details) 3.) History of HTN Continue home medications * Metoprolol Succinate 25mg daily * Losartan 100mg daily 4.) History of CAD - Crestor 40mg po HS - Lipid Profile (07/30/17): Triglycerides 107; Total Cholesterol 233; LDL 108; HDL 56 5.) History of DM Type II - ISS - Patient does not know how many usints of Novolog he uses therefor will monitor accuchecks based on total units used will restart Novolog - Accuchecks - Hypoglycemia Protocol 6.) Prophylaxis - Lovenox 40SC - placed on hold - SCDs - GI prophylaxis not indicated at this time Case discussed with Dr. Jeff Egan PGY-1 <Alejandro Aguilar - Last Filed: 09/18/17 19:22> Objective - Vital Signs/Intake and Output Vital Signs (last 24 hours): Temp Pulse Resp BP Pulse Ox 97.9 F 65 20 133/76 97 09/18/17 15:42 09/18/17 15:42 09/18/17 15:42 09/18/17 15:42 09/18/17 15:42 Intake and Output: 09/18/17 09/19/17 18:59 06:59 Intake Total 880 Balance 880 - Medications Medications: Current Medications Dextrose (Dextrose 50% Inj) 0 ml IV STAT PRN; Protocol PRN Reason: Hypoglycemia Protocol Dextrose (Glutose 15) 0 gm PO ONCE PRN; Protocol PRN Reason: Hypoglycemia Protocol Erythromycin (Erythromycin) 1,000 mg PO 1530,1630,2230 [facility] PRN Reason: Protocol Stop: 09/18/17 22:31 Last Admin: 09/18/17 17:04 Dose: 1,000 mg Glucagon (Glucagen Diagnostic Kit) 0 mg IM STAT PRN; Protocol PRN Reason: Hypoglycemia Protocol Dextrose (Dextrose 5% In Water 1000 Ml) 1,000 mls @ 0 mls/hr IV .Q0M PRN; Protocol; Per Protocol PRN Reason: Hypoglycemia Protocol Lactated Ringer's (Lactated Ringer's) 1,000 mls @ 100 mls/hr IV .Q10H [facility] Last Admin: 09/18/17 11:24 Dose: 100 mls/hr Insulin Aspart (Novolog) 0 unit SC ACHS [facility] PRN Reason: Protocol Last Admin: 09/18/17 17:03 Dose: 2 unit Losartan Potassium (Cozaar) 100 mg PO DAILY [facility] Last Admin: 09/18/17 09:46 Dose: 100 mg Metoprolol Succinate (Toprol Xl) 25 mg PO DAILY [facility] Last Admin: 09/18/17 09:46 Dose: 25 mg Neomycin Sulfate (Neomycin Tab) 1,000 mg PO 1300,1500,2200 [facility] Stop: 09/18/17 22:01 Last Admin: 09/18/17 14:17 Dose: 1,000 mg Rosuvastatin Calcium (Crestor) 40 mg PO HS [facility] Last Admin: 09/17/17 21:08 Dose: 40 mg Spironolactone (Aldactone) 25 mg PO DAILY [facility] Last Admin: 09/18/17 09:46 Dose: 25 mg - Labs Labs: 09/18/17 07:46 09/18/17 07:46 PT 11.4 SECONDS (9.7-12.2) 09/17/17 10:50 INR 1.0 09/17/17 10:50 APTT 34 SECONDS (21-34) 09/18/17 07:46 Attending/Attestation - Attestation I have personally seen and examined this patient.: Yes I have fully participated in the care of the patient.: Yes I have reviewed all pertinent clinical information, including history, physical exam and plan: Yes Notes (Text): 09/18/17 19:20 Patient was seen and examined at 7:30 AM Exam, assessment and plan were gone over with the resident Dr. Egan. Patient is medically optimized for surgery and is pending Cardiology clearance at the time of my exam. Alejandro Aguilar D.O.
[2017-09-18 08:06] LABS: BASO # 0.1 K/uL (0.0-0.2); BASO % 0.8 % (0.0-2.0); EOS # 0.3 K/uL (0.0-0.7); EOS % 3.7 % (0.0-4.0); LYMPH # 1.8 K/uL (1.0-4.3); LYMPH % 25.4 % (20.0-40.0); MEAN CORPUSCULAR HEMOGLOBIN 27.2 pg (27.0-31.0); MEAN PLATELET VOLUME 9.6 fL (7.2-11.7); MONO # 0.3 K/uL (0.0-0.8); MONO % 3.7 % (0.0-10.0); NEUT # 4.7 K/uL (1.8-7.0); NEUT % 66.4 % (50.0-75.0); NRBC % 0.1 % (0.0-2.0); RBC 4.4 Mil/uL (4.40-5.90); RED CELL DISTRIBUTION WIDTH 14.3 % (11.5-14.5); WHITE BLOOD COUNT 7.1 K/uL (4.8-10.8)
--- NOTE | 2017-09-18 08:10 | CP.PCM.PN ---
<Noam Valenzuela - Last Filed: 09/18/17 08:10> Subjective - Date & Time of Evaluation Date of Evaluation: 09/18/17 Time of Evaluation: 08:08 - Subjective Subjective: Surgery: Dr. Aranda Patient doing well this am. Understands he is for surgery tomorrow. No complaints at this time. Objective - Vital Signs/Intake and Output Vital Signs (last 24 hours): Temp Pulse Resp BP Pulse Ox 97.6 F 63 20 157/80 H 95 09/18/17 07:00 09/18/17 07:00 09/18/17 07:00 09/18/17 07:00 09/18/17 07:00 Intake and Output: 09/18/17 09/18/17 06:59 18:59 Intake Total 1780 Balance 1780 - Medications Medications: Current Medications Dextrose (Dextrose 50% Inj) 0 ml IV STAT PRN; Protocol PRN Reason: Hypoglycemia Protocol Dextrose (Glutose 15) 0 gm PO ONCE PRN; Protocol PRN Reason: Hypoglycemia Protocol Enoxaparin Sodium (Lovenox) 40 mg SC DAILY [facility] Erythromycin (Erythromycin) 1,000 mg PO 1300,1500,2200 [facility] PRN Reason: Protocol Stop: 09/18/17 22:01 Glucagon (Glucagen Diagnostic Kit) 0 mg IM STAT PRN; Protocol PRN Reason: Hypoglycemia Protocol Dextrose (Dextrose 5% In Water 1000 Ml) 1,000 mls @ 0 mls/hr IV .Q0M PRN; Protocol; Per Protocol PRN Reason: Hypoglycemia Protocol Lactated Ringer's (Lactated Ringer's) 1,000 mls @ 100 mls/hr IV .Q10H [facility] Insulin Aspart (Novolog) 0 unit SC ACHS [facility] PRN Reason: Protocol Last Admin: 09/17/17 21:10 Dose: Not Given Losartan Potassium (Cozaar) 100 mg PO DAILY [facility] Metoprolol Succinate (Toprol Xl) 25 mg PO DAILY [facility] Last Admin: 09/17/17 21:08 Dose: 25 mg Neomycin Sulfate (Neomycin Tab) 1,000 mg PO 1300,1500,2200 [facility] Stop: 09/18/17 22:01 Polyethylene Glycol/Electrolytes (Golytely) 4,000 ml PO ONCE ONE Stop: 09/18/17 11:01 Rosuvastatin Calcium (Crestor) 40 mg PO HS [facility] Last Admin: 09/17/17 21:08 Dose: 40 mg Spironolactone (Aldactone) 25 mg PO DAILY [facility] - Labs Labs: 09/17/17 10:50 09/17/17 10:50 PT 11.4 SECONDS (9.7-12.2) 09/17/17 10:50 INR 1.0 09/17/17 10:50 APTT 34 SECONDS (21-34) 09/18/17 07:46 - Constitutional Appears: Non-toxic, No Acute Distress - Head Exam Head Exam: ATRAUMATIC, NORMOCEPHALIC - Eye Exam Eye Exam: EOMI, Normal appearance - ENT Exam ENT Exam: Mucous Membranes Moist - Respiratory Exam Respiratory Exam: NORMAL BREATHING PATTERN. absent: Respiratory Distress - Cardiovascular Exam Cardiovascular Exam: REGULAR RHYTHM. absent: Tachycardia - GI/Abdominal Exam GI & Abdominal Exam: Soft. absent: Distended, Guarding, Tenderness, Rebound Assessment and Plan - Assessment and Plan (Free Text) Assessment: 71 y/o male w/ large TV adenoma at cecum Plan: -cardio eval -plan for OR tomorrow -full colon prep with PO abx neomycin, erythromycin and GoLytely -CLD for today -NPO but meds pmn -start IVFs -hold Lovenox in am -further recs per Dr. Aranda AKWhite PGY3 <Arian Aranda B - Last Filed: 09/21/17 18:26> Objective - Vital Signs/Intake and Output Vital Signs (last 24 hours): Temp Pulse Resp BP Pulse Ox 98.7 F 68 18 152/74 H 95 09/21/17 15:50 09/21/17 15:50 09/21/17 15:50 09/21/17 15:50 09/21/17 15:50 Intake and Output: 09/21/17 09/21/17 06:59 18:59 Output Total 191 595 Balance -191 -595 - Medications Medications: Current Medications Alprazolam (Xanax) 0.5 mg PO TID PRN PRN Reason: Anxiety Aspirin (Ecotrin) 81 mg PO DAILY [facility] Last Admin: 09/21/17 10:09 Dose: 81 mg Dextrose (Dextrose 50% Inj) 0 ml IV STAT PRN; Protocol PRN Reason: Hypoglycemia Protocol Dextrose (Glutose 15) 0 gm PO ONCE PRN; Protocol PRN Reason: Hypoglycemia Protocol Enoxaparin Sodium (Lovenox) 40 mg SC DAILY [facility] Last Admin: 09/21/17 10:10 Dose: 40 mg Glucagon (Glucagen Diagnostic Kit) 0 mg IM STAT PRN; Protocol PRN Reason: Hypoglycemia Protocol Hydromorphone HCl (Dilaudid) 0.5 mg IVP Q4H PRN PRN Reason: Pain, moderate (4-7) Last Admin: 09/21/17 17:10 Dose: 0.5 mg Hydromorphone HCl (Dilaudid) 1 mg IVP Q4H PRN PRN Reason: Pain, severe (8-10) Last Admin: 09/21/17 10:38 Dose: 1 mg Dextrose (Dextrose 5% In Water 1000 Ml) 1,000 mls @ 0 mls/hr IV .Q0M PRN; Protocol; Per Protocol PRN Reason: Hypoglycemia Protocol BUPIVACAINE 0.125%/0.9% NACL (Bupivacaine-Ns 0.125% On-Q Lead Assistant Manager) 600 mls @ 4 mls/ hr IJ ONCE ONE Stop: 09/25/17 16:59 Potassium Chloride/Dextrose/Sod Cl (Potassium Chl 20 Meq In D5-1/2ns) 1,000 mls @ 100 mls/hr IV .Q10H [facility] Last Admin: 09/21/17 17:07 Dose: 100 mls/hr Insulin Aspart (Novolog) 0 unit SC ACHS [facility] PRN Reason: Protocol Last Admin: 09/21/17 17:07 Dose: 4 unit Insulin Aspart (Novolog Mix 70/30 (70/30 Units/Ml)) 7 units SC HS [facility] Last Admin: 09/20/17 22:29 Dose: 7 units Insulin Aspart (Novolog Mix 70/30 (70/30 Units/Ml)) 14 units SC ACB [facility] Last Admin: 09/21/17 08:25 Dose: 14 units Loratadine (Claritin) 10 mg PO DAILY [facility] Last Admin: 09/21/17 15:27 Dose: 10 mg Losartan Potassium (Cozaar) 100 mg PO DAILY [facility] Last Admin: 09/21/17 10:09 Dose: 100 mg Metoprolol Succinate (Toprol Xl) 25 mg PO DAILY [facility] Last Admin: 09/21/17 10:10 Dose: 25 mg Ondansetron HCl (Zofran Inj) 4 mg IVP Q4 PRN PRN Reason: Nausea/Vomiting Rosuvastatin Calcium (Crestor) 40 mg PO HS [facility] Last Admin: 09/20/17 22:29 Dose: 40 mg Spironolactone (Aldactone) 25 mg PO DAILY [facility] Last Admin: 09/21/17 10:09 Dose: 25 mg - Labs Labs: 09/21/17 07:38 09/21/17 07:38 PT 12.5 SECONDS (9.7-12.2) H 09/19/17 07:41 INR 1.1 09/19/17 07:41 APTT 34 SECONDS (21-34) 09/19/17 07:41 Attending/Attestation - Attestation I have personally seen and examined this patient.: Yes I have fully participated in the care of the patient.: Yes I have reviewed all pertinent clinical information, including history, physical exam and plan: Yes Notes (Text): Pt is seen and examined at bedside Agree with above note and assessment Pt with Ascending colon mass Abdomen: Soft, NT, ND Labs and radiology reviewed Ass: Ascending colon mass Plan: OR for Robotic R hemicolectomy Consent NPO, IVF PO antibiotics Bowel Prep Plan d.w pt in detail Risk and benefit explained in detail.
[2017-09-18 08:12] LABS: ALB/GLOB RATIO 1.3 (1.0-2.1); ALBUMIN 4.3 g/dL (3.5-5.0); ALT/SGPT 21 U/L (21-72); AST/SGOT 20 U/L (17-59); BLOOD UREA NITROGEN 23 mg/dL (9-20); CALCIUM 9.2 mg/dl (8.6-10.4); GFR AFRICAN-AMERICAN > 60; GFR NON-AFRICAN AMERICAN 54
[2017-09-18] MEDS: (Novolog) Insulin Aspart, Recombinant 100 u/ml 10 ml vial SC SCH ×4 (08:31→21:28)
--- NOTE | 2017-09-18 09:29 | CP.PCM.CON ---
History of Present Illness - History of Present Illness History of Present Illness: case discussed with cardiovascular surgical tech yesterday. full consult to follow. hold aspirin. no indication for herparin pre op Past Patient History - Past Medical History & Family History Past Medical History?: Yes - Past Social History Smoking Status: Never Smoked - CARDIAC Hx Hypercholesterolemia: Yes Hx Hypertension: Yes Hx Pacemaker: No - PULMONARY Hx Respiratory Disorders: No - NEUROLOGICAL Hx Paralysis: No - HEENT Hx HEENT Problems: Yes - RENAL Hx Chronic Kidney Disease: No - ENDOCRINE/METABOLIC Hx Endocrine Disorders: Yes Hx Diabetes Mellitus Type 1: Yes - HEMATOLOGICAL/ONCOLOGICAL Hx Blood Transfusions: No - INTEGUMENTARY Hx Dermatological Problems: No - MUSCULOSKELETAL/RHEUMATOLOGICAL Hx Arthritis: Yes - GASTROINTESTINAL Hx Gastrointestinal Disorders: No - GENITOURINARY/GYNECOLOGICAL Hx Genitourinary Disorders: No - PSYCHIATRIC Hx Substance Use: No - SURGICAL HISTORY Hx Coronary Artery Bypass Graft: Yes (1999) - ANESTHESIA Hx Anesthesia Reactions: No Hx Malignant Hyperthermia: No Meds Allergies/Adverse Reactions: Allergies Allergy/AdvReac Type Severity Reaction Status Date / Time No Known Allergies Allergy Verified 09/17/17 10:07 - Medications Medications: Current Medications Dextrose (Dextrose 50% Inj) 0 ml IV STAT PRN; Protocol PRN Reason: Hypoglycemia Protocol Dextrose (Glutose 15) 0 gm PO ONCE PRN; Protocol PRN Reason: Hypoglycemia Protocol Enoxaparin Sodium (Lovenox) 40 mg SC ONCE ONE Stop: 09/18/17 10:01 Erythromycin (Erythromycin) 1,000 mg PO 1300,1500,2200 [facility] PRN Reason: Protocol Stop: 09/18/17 22:01 Glucagon (Glucagen Diagnostic Kit) 0 mg IM STAT PRN; Protocol PRN Reason: Hypoglycemia Protocol Dextrose (Dextrose 5% In Water 1000 Ml) 1,000 mls @ 0 mls/hr IV .Q0M PRN; Protocol; Per Protocol PRN Reason: Hypoglycemia Protocol Lactated Ringer's (Lactated Ringer's) 1,000 mls @ 100 mls/hr IV .Q10H [facility] Insulin Aspart (Novolog) 0 unit SC ACHS [facility] PRN Reason: Protocol Last Admin: 09/18/17 08:31 Dose: 2 unit Losartan Potassium (Cozaar) 100 mg PO DAILY [facility] Metoprolol Succinate (Toprol Xl) 25 mg PO DAILY [facility] Last Admin: 09/17/17 21:08 Dose: 25 mg Neomycin Sulfate (Neomycin Tab) 1,000 mg PO 1300,1500,2200 [facility] Stop: 09/18/17 22:01 Polyethylene Glycol/Electrolytes (Golytely) 4,000 ml PO ONCE ONE Stop: 09/18/17 11:01 Rosuvastatin Calcium (Crestor) [address] [facility] Last Admin: 09/17/17 21:08 Dose: 40 mg Spironolactone (Aldactone) 25 mg PO DAILY [facility] Results - Vital Signs Recent Vital Signs: Last Vital Signs Temp 97.6 F 09/18/17 07:00 Pulse 63 09/18/17 07:00 Resp 20 09/18/17 07:00 BP 157/80 H 09/18/17 07:00 Pulse Ox 95 09/18/17 07:00 - Labs Result Diagrams: 09/18/17 07:46 09/18/17 07:46 Labs: Laboratory Results - last 24 hr 09/17/17 09/17/17 09/17/17 10:50 10:50 10:50 WBC 7.3 RBC 4.20 L Hgb 11.7 L Hct 33.7 L MCV 80.3 MCH 28.0 MCHC 34.8 RDW 14.3 Plt Count 197 MPV 9.9 Neut % (Auto) 63.8 Lymph % (Auto) 27.5 [place] % (Auto) 4.1 Eos % (Auto) 3.8 Baso % (Auto) 0.8 Neut # (Auto) 4.7 Lymph # (Auto) 2.0 [place] # (Auto) 0.3 Eos # (Auto) 0.3 Baso # (Auto) 0.1 PT 11.4 INR 1.0 APTT 35 H Sodium 138 Potassium 4.9 Chloride 102 Carbon Dioxide 27 Anion Gap 14 BUN 26 H Creatinine 1.3 Est GFR ( Amer) > 60 Est GFR (Non-Af Amer) 54 POC Glucose (mg/dL) Random Glucose 315 H Calcium 9.1 Phosphorus Magnesium Total Bilirubin 0.7 AST 25 ALT 30 Alkaline Phosphatase 86 Total Protein 7.4 Albumin 4.0 Globulin 3.5 Albumin/Globulin Ratio 1.1 Urine Color Urine Clarity Urine pH Ur Specific [place] Urine Protein Urine Glucose (UA) Urine Ketones Urine Blood Urine Nitrate Urine Bilirubin Urine Urobilinogen Ur Leukocyte Esterase Urine WBC (Auto) Urine RBC (Auto) Hyaline Casts Blood Type Antibody Screen 09/17/17 09/17/17 09/17/17 10:50 10:56 12:05 WBC RBC Hgb Hct MCV MCH MCHC RDW Plt Count MPV Neut % (Auto) Lymph % (Auto) [place] % (Auto) Eos % (Auto) Baso % (Auto) Neut # (Auto) Lymph # (Auto) [place] # (Auto) Eos # (Auto) Baso # (Auto) PT INR APTT Sodium Potassium Chloride Carbon Dioxide Anion Gap BUN Creatinine Est GFR ( Amer) Est GFR (Non-Af Amer) POC Glucose (mg/dL) 210 H Random Glucose Calcium Phosphorus Magnesium Total Bilirubin AST ALT Alkaline Phosphatase Total Protein Albumin Globulin Albumin/Globulin Ratio Urine Color Yellow Urine Clarity Clear Urine pH 6.0 Ur Specific [place] 1.009 Urine Protein 1+ H Urine Glucose (UA) 3+ H Urine Ketones Negative Urine Blood Negative Urine Nitrate Negative Urine Bilirubin Negative Urine Urobilinogen Normal Ur Leukocyte Esterase Neg Urine WBC (Auto) < 1 Urine RBC (Auto) 1 Hyaline Casts 0-2 Blood Type O POSITIVE Antibody Screen Negative 09/17/17 09/17/17 09/18/17 16:07 21:10 06:15 WBC RBC Hgb Hct MCV MCH MCHC RDW Plt Count MPV Neut % (Auto) Lymph % (Auto) [place] % (Auto) Eos % (Auto) Baso % (Auto) Neut # (Auto) Lymph # (Auto) [place] # (Auto) Eos # (Auto) Baso # (Auto) PT INR APTT Sodium Potassium Chloride Carbon Dioxide Anion Gap BUN Creatinine Est GFR ( Amer) Est GFR (Non-Af Amer) POC Glucose (mg/dL) 255 H 282 H 314 H Random Glucose Calcium Phosphorus Magnesium Total Bilirubin AST ALT Alkaline Phosphatase Total Protein Albumin Globulin Albumin/Globulin Ratio Urine Color Urine Clarity Urine pH Ur Specific [place] Urine Protein Urine Glucose (UA) Urine Ketones Urine Blood Urine Nitrate Urine Bilirubin Urine Urobilinogen Ur Leukocyte Esterase Urine WBC (Auto) Urine RBC (Auto) Hyaline Casts Blood Type Antibody Screen 09/18/17 09/18/17 09/18/17 07:46 07:46 07:46 WBC 7.1 RBC 4.40 Hgb 12.0 Hct 35.2 MCV 80.0 MCH 27.2 MCHC 34.0 RDW 14.3 Plt Count 196 MPV 9.6 Neut % (Auto) 66.4 Lymph % (Auto) 25.4 [place] % (Auto) 3.7 Eos % (Auto) 3.7 Baso % (Auto) 0.8 Neut # (Auto) 4.7 Lymph # (Auto) 1.8 [place] # (Auto) 0.3 Eos # (Auto) 0.3 Baso # (Auto) 0.1 PT INR APTT 34 Sodium 140 Potassium 4.6 Chloride 105 Carbon Dioxide 25 Anion Gap 14 BUN 23 H Creatinine 1.3 Est GFR ( Amer) > 60 Est GFR (Non-Af Amer) 54 POC Glucose (mg/dL) Random Glucose 282 H Calcium 9.2 Phosphorus 3.1 Magnesium 1.9 Total Bilirubin 0.6 AST 20 ALT 21 D Alkaline Phosphatase 81 Total Protein 7.7 Albumin 4.3 Globulin 3.4 Albumin/Globulin Ratio 1.3 Urine Color Urine Clarity Urine pH Ur Specific [place] Urine Protein Urine Glucose (UA) Urine Ketones Urine Blood Urine Nitrate Urine Bilirubin Urine Urobilinogen Ur Leukocyte Esterase Urine WBC (Auto) Urine RBC (Auto) Hyaline Casts Blood Type Antibody Screen
[2017-09-18] MEDS: Metoprolol Succinate 25 mg XL Tab PO SCH (09:46)
[2017-09-18] MEDS ORDERED: Home Med 1 UNIT (Atorvastatin [Lipitor] 1 TAB) PO SCH (10:00)
[2017-09-18] MEDS ORDERED: Enoxaparin 40 mg Syringe SC ONE ×2 (10:00→12:15)
[2017-09-18] MEDS ORDERED: Enoxaparin 40 mg Syringe SC SCH ×2 (10:00)
[2017-09-18] MEDS ORDERED: Metoprolol Succinate 25 mg XL Tab PO SCH ×2 (10:00→22:00)
[2017-09-18] MEDS ORDERED: Peg-Electrolyte Oral Soln 4L (Golytely) PO ONE (11:00)
[2017-09-18] MEDS: Lactated Ringer's 1,000 ML IV SCH ×2 (11:24→21:05)
--- NOTE | 2017-09-18 18:24 | CP.PCM.CON ---
History of Present Illness - History of Present Illness History of Present Illness: I was asked to evaluate patient by the surgical team. Patient is a 71 year old male with PMH HTN CAD s/p CABG (AVENDANO to LAD, SVG to OM ) who has colon cancer. he is scheduled for hemicloectomy. The patient denies chest pain or dyspnea. He has normal left ventricular function by echocardiogram. Review of Systems - Constitutional Constitutional: absent: As Per HPI, Anorexia, Chills, Daytime Sleepiness, Excessive Sweating, Fatigue, Fever, Frequent Falls, Headache, Increased Appetite , Lethargy, Malaise, Night Sweats, Snoring, Sleep Apnea, Weight Gain, Weight Loss, Weakness, Other - EENT Eyes: absent: As Per HPI, Blind Spots, Blurred Vision, Change in Vision, Decreased Night Vision, Diplopia, Discharge, Dry Eye, Exophthalmos, Floaters, Irritation, Itchy Eyes, Loss of Peripheral Vision, Pain, Photophobia, Requires Corrective Lenses, Sees Flashes, Spots in Vision, Tunnel Vision, Other Visual Disturbances, Loss of Vision, Other Ears: absent: As Per HPI, Decreased Hearing, Ear Discharge, Ear Pain, Tinnitus, Abnormal Hearing, Disequilibrium, Dizziness, Other Nose/Mouth/Throat: absent: As Per HPI, Epistaxis, Nasal Congestion, Nasal Discharge, Nasal Obstruction, Nasal Trauma, Nose Pain, Post Nasal Drip, Sinus Pain, Sinus Pressure, Bleeding Gums, Change in Voice, Dental Pain, Dry Mouth, Dysphagia, Halitosis, Hoarsness, Lip Swelling, Mouth Lesions, Mouth Pain, Odynophagia, Sore Throat, Throat Swelling, Tongue Swelling, Facial Pain, Neck Pain, Neck Mass, Other - Cardiovascular Cardiovascular: Chest Pain at Rest, Dyspnea - Respiratory Respiratory: absent: As Per HPI, Cough, Dyspnea, Hemoptysis, Dyspnea on Exertion , Wheezing, Snoring, Stridor, Pain on Inspiration, Chest Congestion, Excessive Mucous Production, Change in Mucous Color, Pain with Coughing, Other - Gastrointestinal Gastrointestinal: absent: As Per HPI, Abdominal Pain, Belching, Bloating, Change in Bowel Habits, Change in Stool Character, Coffee Ground Emesis, Constipation, Cramping, Diarrhea, Dyspepsia, Dysphagia, Early Satiety, Excessive Flatus, Fecal Incontinence, Heartburn, Hematemesis, Hematochezia, Loose Stools, Melena, Nausea, Odynophagia, Temesmus, Vomiting, Other - Musculoskeletal Musculoskeletal: absent: As Per HPI, Abnormal Gait, Arthralgias, Atrophy, Back Pain, Deformity, Joint Swelling, Limited Range of Motion, Loss of Height, Muscle Cramps, Muscle Weakness, Myalgias, Neck Pain, Numbness, Radiating Pain into Limb, Stiffness, Tingling, Other - Integumentary Integumentary: absent: As Per HPI, Acne, Alopecia, Bleeding Lesions, Change in Hair, Change in Nails, Change in Pigmentation, Changing Lesions, Dry Skin, Erythema, Furuncle, Hirsutism, Lesions, New Lesions, Non-Healing Lesions, Photosensitivity, Pruritus, Rash, Skin Pain, Skin Ulcer, Sores, Striae, Swelling , Unusual Bruising, Wounds, Jaundice, Other - Psychiatric Psychiatric: absent: As Per HPI, Abnormal Sleep Pattern, Anhedonia, Anxiety, Auditory Hallucinations, Behavioral Changes, Change in Appetite, Change in Libido, Confusion, Depression, Difficulty Concentrating, Hallucinations, Homicidal Ideation, Hopelessness, Irritability, Memory Loss, Mood Swings, Panic Attacks, Paranoia, Suicidal Ideation, Visual Hallucinations, Tactile Hallucinations, Other - Endocrine Endocrine: absent: As Per HPI, Change in Body Appearance, Change in Libido, Cold Intolorance, Deepening of Voice, Excessive Sweating, Fatigue, Flushing, Heat Intolorance, Increase in Ring/Shoe/Hat Size, Palpitations, Polydipsia, Polyphagia, Polyuria, Other - Hematologic/Lymphatic Hematologic: absent: As Per HPI, Easy Bleeding, Easy Bruising, Lymphadenopathy, Other Past Patient History - Past Medical History & Family History Past Medical History?: Yes - Past Social History Smoking Status: Never Smoked - CARDIAC Hx Hypercholesterolemia: Yes Hx Hypertension: Yes Hx Pacemaker: No - PULMONARY Hx Respiratory Disorders: No - NEUROLOGICAL Hx Paralysis: No - HEENT Hx HEENT Problems: Yes - RENAL Hx Chronic Kidney Disease: No - ENDOCRINE/METABOLIC Hx Endocrine Disorders: Yes Hx Diabetes Mellitus Type 1: Yes - HEMATOLOGICAL/ONCOLOGICAL Hx Blood Transfusions: No - INTEGUMENTARY Hx Dermatological Problems: No - MUSCULOSKELETAL/RHEUMATOLOGICAL Hx Arthritis: Yes - GASTROINTESTINAL Hx Gastrointestinal Disorders: No - GENITOURINARY/GYNECOLOGICAL Hx Genitourinary Disorders: No - PSYCHIATRIC Hx Substance Use: No - SURGICAL HISTORY Hx Coronary Artery Bypass Graft: Yes (1999) - ANESTHESIA Hx Anesthesia Reactions: No Hx Malignant Hyperthermia: No Meds Allergies/Adverse Reactions: Allergies Allergy/AdvReac Type Severity Reaction Status Date / Time No Known Allergies Allergy Verified 09/17/17 10:07 - Medications Medications: Current Medications Dextrose (Dextrose 50% Inj) 0 ml IV STAT PRN; Protocol PRN Reason: Hypoglycemia Protocol Dextrose (Glutose 15) 0 gm PO ONCE PRN; Protocol PRN Reason: Hypoglycemia Protocol Erythromycin (Erythromycin) 1,000 mg PO 1530,1630,2230 [facility] PRN Reason: Protocol Stop: 09/18/17 22:31 Last Admin: 09/18/17 17:04 Dose: 1,000 mg Glucagon (Glucagen Diagnostic Kit) 0 mg IM STAT PRN; Protocol PRN Reason: Hypoglycemia Protocol Dextrose (Dextrose 5% In Water 1000 Ml) 1,000 mls @ 0 mls/hr IV .Q0M PRN; Protocol; Per Protocol PRN Reason: Hypoglycemia Protocol Lactated Ringer's (Lactated Ringer's) 1,000 mls @ 100 mls/hr IV .Q10H [facility] Last Admin: 09/18/17 11:24 Dose: 100 mls/hr Insulin Aspart (Novolog) 0 unit SC ACHS [facility] PRN Reason: Protocol Last Admin: 09/18/17 17:03 Dose: 2 unit Losartan Potassium (Cozaar) 100 mg PO DAILY [facility] Last Admin: 09/18/17 09:46 Dose: 100 mg Metoprolol Succinate (Toprol Xl) 25 mg PO DAILY [facility] Last Admin: 09/18/17 09:46 Dose: 25 mg Neomycin Sulfate (Neomycin Tab) 1,000 mg PO 1300,1500,2200 [facility] Stop: 09/18/17 22:01 Last Admin: 09/18/17 14:17 Dose: 1,000 mg Rosuvastatin Calcium (Crestor) 40 mg PO HS [facility] Last Admin: 09/17/17 21:08 Dose: 40 mg Spironolactone (Aldactone) 25 mg PO DAILY [facility] Last Admin: 09/18/17 09:46 Dose: 25 mg Physical Exam - Constitutional Appears: Non-toxic - Head Exam Head Exam: NORMAL INSPECTION - Eye Exam Eye Exam: Normal appearance - ENT Exam ENT Exam: Mucous Membranes Moist - Neck Exam Neck exam: Positive for: Full Rom - Respiratory Exam Respiratory Exam: NORMAL BREATHING PATTERN - Cardiovascular Exam Cardiovascular Exam: REGULAR RHYTHM - GI/Abdominal Exam GI & Abdominal Exam: Normal Bowel Sounds - Rectal Exam Rectal Exam: Deferred - Extremities Exam Extremities exam: Negative for: pedal edema - Back Exam Back exam: NORMAL INSPECTION - Neurological Exam Neurological exam: Alert, Oriented x3 - Psychiatric Exam Psychiatric exam: Normal Affect - Skin Skin Exam: Normal Color Results - Vital Signs Recent Vital Signs: Last Vital Signs Temp 97.9 F 09/18/17 15:42 Pulse 65 09/18/17 15:42 Resp 20 09/18/17 15:42 BP 133/76 09/18/17 15:42 Pulse Ox 97 09/18/17 15:42 - Labs Result Diagrams: 09/18/17 07:46 09/18/17 07:46 Labs: Laboratory Results - last 24 hr 09/17/17 09/18/17 09/18/17 21:10 06:15 07:46 WBC 7.1 RBC 4.40 Hgb 12.0 Hct 35.2 MCV 80.0 MCH 27.2 MCHC 34.0 RDW 14.3 Plt Count 196 MPV 9.6 Neut % (Auto) 66.4 Lymph % (Auto) 25.4 [place] % (Auto) 3.7 Eos % (Auto) 3.7 Baso % (Auto) 0.8 Neut # (Auto) 4.7 Lymph # (Auto) 1.8 [place] # (Auto) 0.3 Eos # (Auto) 0.3 Baso # (Auto) 0.1 APTT Sodium Potassium Chloride Carbon Dioxide Anion Gap BUN Creatinine Est GFR ( Amer) Est GFR (Non-Af Amer) POC Glucose (mg/dL) 282 H 314 H Random Glucose Calcium Phosphorus Magnesium Total Bilirubin AST ALT Alkaline Phosphatase Total Protein Albumin Globulin Albumin/Globulin Ratio 09/18/17 09/18/17 09/18/17 07:46 07:46 11:30 WBC RBC Hgb Hct MCV MCH MCHC RDW Plt Count MPV Neut % (Auto) Lymph % (Auto) [place] % (Auto) Eos % (Auto) Baso % (Auto) Neut # (Auto) Lymph # (Auto) [place] # (Auto) Eos # (Auto) Baso # (Auto) APTT 34 Sodium 140 Potassium 4.6 Chloride 105 Carbon Dioxide 25 Anion Gap 14 BUN 23 H Creatinine 1.3 Est GFR ( Amer) > 60 Est GFR (Non-Af Amer) 54 POC Glucose (mg/dL) 306 H Random Glucose 282 H Calcium 9.2 Phosphorus 3.1 Magnesium 1.9 Total Bilirubin 0.6 AST 20 ALT 21 D Alkaline Phosphatase 81 Total Protein 7.7 Albumin 4.3 Globulin 3.4 Albumin/Globulin Ratio 1.3 09/18/17 16:11 WBC RBC Hgb Hct MCV MCH MCHC RDW Plt Count MPV Neut % (Auto) Lymph % (Auto) [place] % (Auto) Eos % (Auto) Baso % (Auto) Neut # (Auto) Lymph # (Auto) [place] # (Auto) Eos # (Auto) Baso # (Auto) APTT Sodium Potassium Chloride Carbon Dioxide Anion Gap BUN Creatinine Est GFR ( Amer) Est GFR (Non-Af Amer) POC Glucose (mg/dL) 159 H Random Glucose Calcium Phosphorus Magnesium Total Bilirubin AST ALT Alkaline Phosphatase Total Protein Albumin Globulin Albumin/Globulin Ratio - EKG Data EKG Interpreted by: Myself EKG shows normal: Sinus rhythm Assessment & Plan (1) Colonic mass Assessment and Plan: cardiac cath revealed patent bypass grafts and normal left ventricular function. There is no cardiovascular contraindication to the planned procedure. will hold aspirin. no indication for heparin Status: Acute (2) CAD (coronary artery disease) Assessment and Plan: will resume asa after surgery. Status: Acute (3) HTN (hypertension) Assessment and Plan: blood pressure control Status: Acute
--- NOTE | 2017-09-19 07:02 | CP.PCM.PN ---
<Meenu Egan - Last Filed: 09/19/17 16:46> Subjective - Date & Time of Evaluation Date of Evaluation: 09/19/17 Time of Evaluation: 07:00 - Subjective Subjective: Medicine Progress Note: Patient was seen and examined at bedside in the AM. Patient is not in acute stress. Patient denies chest pain, shortness of breath, palpitations, fever, nausea, vomiting, diarrhea, constipation or dysuria. Objective - Vital Signs/Intake and Output Vital Signs (last 24 hours): Temp Pulse Resp BP Pulse Ox 97.9 F 68 20 119/64 96 09/18/17 23:52 09/18/17 23:52 09/18/17 23:52 09/18/17 23:52 09/18/17 23:52 Intake and Output: 09/19/17 09/19/17 06:59 18:59 Intake Total 1400 Balance 1400 - Medications Medications: Current Medications Dextrose (Dextrose 50% Inj) 0 ml IV STAT PRN; Protocol PRN Reason: Hypoglycemia Protocol Dextrose (Glutose 15) 0 gm PO ONCE PRN; Protocol PRN Reason: Hypoglycemia Protocol Glucagon (Glucagen Diagnostic Kit) 0 mg IM STAT PRN; Protocol PRN Reason: Hypoglycemia Protocol Dextrose (Dextrose 5% In Water 1000 Ml) 1,000 mls @ 0 mls/hr IV .Q0M PRN; Protocol; Per Protocol PRN Reason: Hypoglycemia Protocol Lactated Ringer's (Lactated Ringer's) 1,000 mls @ 100 mls/hr IV .Q10H [facility] Last Admin: 09/18/17 21:05 Dose: 100 mls/hr Insulin Aspart (Novolog) 0 unit SC ACHS [facility] PRN Reason: Protocol Last Admin: 09/18/17 21:28 Dose: Not Given Losartan Potassium (Cozaar) 100 mg PO DAILY [facility] Last Admin: 09/18/17 09:46 Dose: 100 mg Metoprolol Succinate (Toprol Xl) 25 mg PO DAILY [facility] Last Admin: 09/18/17 09:46 Dose: 25 mg Rosuvastatin Calcium (Crestor) 40 mg PO HS [facility] Last Admin: 09/18/17 21:06 Dose: 40 mg Spironolactone (Aldactone) 25 mg PO DAILY [facility] Last Admin: 09/18/17 09:46 Dose: 25 mg - Labs Labs: 09/18/17 07:46 05/29/18 07:46 PT 11.4 SECONDS (9.7-12.2) 09/17/17 10:50 INR 1.0 09/17/17 10:50 APTT 34 SECONDS (21-34) 09/18/17 07:46 - Constitutional Appears: No Acute Distress - Head Exam Head Exam: ATRAUMATIC, NORMAL INSPECTION - Eye Exam Additional comments: Left eye- clouding - ENT Exam ENT Exam: Mucous Membranes Moist - Respiratory Exam Respiratory Exam: Clear to Ausculation Bilateral, NORMAL BREATHING PATTERN - Cardiovascular Exam Cardiovascular Exam: REGULAR RHYTHM, +S1, +S2 - GI/Abdominal Exam GI & Abdominal Exam: Soft, Normal Bowel Sounds. absent: Tenderness Additional comments: obese abdomen - Extremities Exam Extremities Exam: Normal Inspection - Neurological Exam Neurological Exam: Alert, Awake, Oriented x3 - Psychiatric Exam Psychiatric exam: Normal Affect, Normal Mood - Skin Skin Exam: Normal Color Assessment and Plan - Assessment and Plan (Free Text) Assessment: 1.) Tubulousvillous Adenoma - Management per primary team: Dr. Aranda - Scheduled for hemicloectomy 09/19/17 - Medically Optimized - Detski Score: 5 --> 6% risk of complications - EKG: NSR at 60bpm; Type I AV block; prior ischemia shown on leads I and II - Chest Xray: No acute cardiopulmonary disease appreciated. Stable left basilar fibrosis. - ECHO (07/05/17): LVEF 65%; mild left ventricular hypertrophy (please see report for full details) - Cardio Consult: Dr. Raphael --> help appreciated 2.) History of CABG in 2002 - Continue home medications * Losartan 100mg daily * Aspirin 81mg po daily - on hold * Metoprolol Succinate 25mg daily * Crestor 40mg po HS - ECHO (07/05/17): LVEF 65%; mild left ventricular hypertrophy (please see report for full details) 3.) History of HTN Continue home medications * Metoprolol Succinate 25mg daily * Losartan 100mg daily 4.) History of CAD - Crestor 40mg po HS - Lipid Profile (07/30/17): Triglycerides 107; Total Cholesterol 233; LDL 108; HDL 56 5.) History of DM Type II - ISS - Patient does not know how many usints of Novolog he uses therefor will monitor accuchecks based on total units used will restart Novolog - Accuchecks - Hypoglycemia Protocol 6.) Prophylaxis - Lovenox 40SC - placed on hold - SCDs - GI prophylaxis not indicated at this time Case discussed with Dr. Jeff Egan PGY-1 <Alejandro Aguilar - Last Filed: 09/19/17 17:26> Objective - Vital Signs/Intake and Output Vital Signs (last 24 hours): Temp Pulse Resp BP Pulse Ox 98.7 F 87 12 144/71 100 09/19/17 16:02 09/19/17 17:00 09/19/17 17:00 09/19/17 17:00 09/19/17 17:00 Intake and Output: 09/19/17 09/19/17 06:59 18:59 Intake Total 1400 3500 Output Total 700 Balance 1400 2800 - Medications Medications: Current Medications Alprazolam (Xanax) 0.5 mg PO TID PRN PRN Reason: Anxiety Dextrose (Dextrose 50% Inj) 0 ml IV STAT PRN; Protocol PRN Reason: Hypoglycemia Protocol Dextrose (Glutose 15) 0 gm PO ONCE PRN; Protocol PRN Reason: Hypoglycemia Protocol Enoxaparin Sodium (Lovenox) 40 mg SC DAILY [facility] Glucagon (Glucagen Diagnostic Kit) 0 mg IM STAT PRN; Protocol PRN Reason: Hypoglycemia Protocol Hydromorphone HCl (Dilaudid) 0.5 mg IVP Q5M PRN PRN Reason: Pain, severe (8-10) Stop: 09/19/17 18:05 Last Admin: 09/19/17 16:29 Dose: 0.5 mg Hydromorphone HCl (Dilaudid) 1 mg IVP Q4H PRN PRN Reason: Pain, severe (8-10) Hydromorphone HCl (Dilaudid) 0.5 mg IVP Q4H PRN PRN Reason: Pain, moderate (4-7) Dextrose (Dextrose 5% In Water 1000 Ml) 1,000 mls @ 0 mls/hr IV .Q0M PRN; Protocol; Per Protocol PRN Reason: Hypoglycemia Protocol Lactated Ringer's (Lactated Ringer's) 1,000 mls @ 100 mls/hr IV .Q10H [facility] Last Admin: 09/19/17 07:32 Dose: 100 mls/hr BUPIVACAINE 0.125%/0.9% NACL (Bupivacaine-Ns 0.125% On-Q Dishwasher Busser) 600 mls @ 4 mls/ hr IJ ONCE ONE Stop: 09/25/17 16:59 Cefazolin Sodium 1,000 mg/ (Sodium Chloride) 50 mls @ 100 mls/hr IVPB Q8H [facility] PRN Reason: Protocol Metronidazole (Flagyl) 500 mg in 100 mls @ 100 mls/hr IVPB Q8H [facility] PRN Reason: Protocol Insulin Aspart (Novolog) 0 unit SC ACHS [facility] PRN Reason: Protocol Last Admin: 09/19/17 17:12 Dose: Not Given Losartan Potassium (Cozaar) 100 mg PO DAILY [facility] Last Admin: 09/19/17 09:16 Dose: 100 mg Metoprolol Succinate (Toprol Xl) 25 mg PO DAILY [facility] Last Admin: 09/19/17 09:15 Dose: 25 mg Ondansetron HCl (Zofran Inj) 4 mg IVP Q4 PRN PRN Reason: Nausea/Vomiting Rosuvastatin Calcium (Crestor) 40 mg PO HS [facility] Last Admin: 09/18/17 21:06 Dose: 40 mg Spironolactone (Aldactone) 25 mg PO DAILY [facility] Last Admin: 09/19/17 09:15 Dose: 25 mg - Labs Labs: 09/19/17 07:41 09/19/17 07:41 PT 12.5 SECONDS (9.7-12.2) H 09/19/17 07:41 INR 1.1 09/19/17 07:41 APTT 34 SECONDS (21-34) 09/19/17 07:41 Attending/Attestation - Attestation I have personally seen and examined this patient.: Yes I have fully participated in the care of the patient.: Yes I have reviewed all pertinent clinical information, including history, physical exam and plan: Yes Notes (Text): 09/19/17 17:26 Patient was seen and examined at 7:30 AM. For OR today. Alejandro Aguilar D.O.
[2017-09-19] MEDS: Lactated Ringer's 1,000 ML IV SCH ×3 (07:32→18:57)
[2017-09-19] MEDS: (Novolog) Insulin Aspart, Recombinant 100 u/ml 10 ml vial SC SCH ×4 (07:45→21:24)
[2017-09-19 08:02] LABS: BASO % 0.5 % (0.0-2.0); EOS # 0.2 K/uL (0.0-0.7); EOS % 2.9 % (0.0-4.0); HEMOGLOBIN 11.2 g/dL (12.0-18.0); LYMPH # 1.8 K/uL (1.0-4.3); LYMPH % 25.7 % (20.0-40.0); MEAN CELL VOLUME 80.1 fL (80.0-94.0); MEAN CORPUSCULAR HEMOGLOBIN 27.7 pg (27.0-31.0); MEAN CORPUSCULAR HGB CONC 34.6 g/dL (33.0-37.0); MEAN PLATELET VOLUME 9.4 fL (7.2-11.7); MONO # 0.3 K/uL (0.0-0.8); MONO % 3.7 % (0.0-10.0); NEUT # 4.8 K/uL (1.8-7.0); NEUT % 67.2 % (50.0-75.0); RBC 4.04 Mil/uL (4.40-5.90); RED CELL DISTRIBUTION WIDTH 14.4 % (11.5-14.5); WHITE BLOOD COUNT 7.1 K/uL (4.8-10.8)
[2017-09-19 08:08] LABS: INR 1.1; PROTHROMBIN TIME 12.5 SECONDS (9.7-12.2)
[2017-09-19 08:24] LABS: ALB/GLOB RATIO 1.2 (1.0-2.1); ALBUMIN 3.9 g/dL (3.5-5.0); ALT/SGPT 25 U/L (21-72); AST/SGOT 29 U/L (17-59); BLOOD UREA NITROGEN 19 mg/dL (9-20); GFR AFRICAN-AMERICAN > 60; GFR NON-AFRICAN AMERICAN 60
[2017-09-19] MEDS ORDERED: Bupivacaine HCl 0.25% PF (30 ml) Inj ONE ×2 (09:14→10:40)
[2017-09-19] MEDS ORDERED: ceFAZolin 1 gm in NS 2 GM/200 ML BAG IVPB ONE (09:14)
[2017-09-19] MEDS ORDERED: Lidocaine/Epinephrine 1% 1:100000 10 ML IJ ONE (09:14)
[2017-09-19] MEDS: Metoprolol Succinate 25 mg XL Tab PO SCH (09:15)
[2017-09-19] MEDS ORDERED: Midazolam 2 MG/2 ML VIAL ONE (10:18)
[2017-09-19] MEDS ORDERED: Propofol 10 mg/ml Inj (20 ML) ONE ×2 (10:18→14:07)
[2017-09-19] MEDS ORDERED: BUPIVACAINE 0.125%/0.9% NACL 600 ML IJ ONE ×2 (10:40→11:00)
[2017-09-19] MEDS ORDERED: Bupivacaine HCl 0.5% PF (30 ml) Inj IJ ONE (10:43)
[2017-09-19] MEDS ORDERED: metroNIDAZOLE IV 500 mg/100 ml 500 MG/100 ML BAG ONE (11:05)
[2017-09-19] MEDS ORDERED: ePHEDrine 50 mg/ml Inj ONE (11:43)
[2017-09-19] MEDS ORDERED: Bupivacaine 0.5% Inj(30mL) IJ ONE (13:38)
[2017-09-19] MEDS ORDERED: Neostigmine Methylsulfate 3mg/3ml Syringe IV ONE ×2 (14:19→14:30)
[2017-09-19] MEDS ORDERED: Morphine 4 MG/ML VIAL ONE (15:14)
[2017-09-19] MEDS ORDERED: HYDROmorphone 0.5 mg/0.5 ml ISec IVP PRN (16:05)
--- NOTE | 2017-09-19 16:10 | PCM.SURG1 ---
Surgeon's Initial Post Op Note - Surgeon's Notes Surgeon: Dr. Aranda Funeral Service Manager: Dr. Valenzuela PGY3, Carissa HUTTON Type of Anesthesia: General Endo, Local Pre-Operative Diagnosis: right colon mass Operative Findings: viable anastomosis Post-Operative Diagnosis: same Operation Performed: robotic assisted laparoscopic right romero-colectomy with primary extracorporal ileocolic anastomosis, partial omentectomy, insertion of ON-Q pump Specimen/Specimens Removed: terminal ileum, appendix, cecum, ascending colon, omentum Estimated Blood Loss: EBL {In ML}: 20 Blood Products Given: N/A Drains Used: Fabricio Post-Op Condition: Good Date of Surgery/Procedure: 09/19/17 Time of Surgery/Procedure: 11:00
[2017-09-19] MEDS: HYDROmorphone 1 mg/ml ISec IVP PRN (18:50)
[2017-09-19] MEDS: metroNIDAZOLE IV 500 mg/100 ml 500 MG/100 ML BAG IVPB SCH (19:34)
[2017-09-19] MEDS ORDERED: metroNIDAZOLE IV 500 mg/100 ml 250 MG in Premixed IV 1 EA IVPB SCH (22:00)
[2017-09-19] MEDS: HYDROmorphone 0.5 mg/0.5 ml ISec IVP PRN (22:51)
[2017-09-20] MEDS: metroNIDAZOLE IV 500 mg/100 ml 500 MG/100 ML BAG IVPB SCH (03:00)
[2017-09-20] MEDS: Lactated Ringer's 1,000 ML IV SCH ×3 (03:42→23:06)
[2017-09-20] MEDS: HYDROmorphone 1 mg/ml ISec IVP PRN ×2 (06:15→11:10)
--- NOTE | 2017-09-20 06:55 | CP.PCM.PN ---
<Meenu Egan - Last Filed: 09/20/17 11:16> Subjective - Date & Time of Evaluation Date of Evaluation: 09/20/17 Time of Evaluation: 07:00 - Subjective Subjective: Medicine Progress Note: Patient was seen and examined at bedside in the AM. Patient is not in acute stress. Patient states he has mild right lower abdominal pain. Patient denies chest pain, shortness of breath, palpitations, fever, nausea, vomiting, diarrhea , constipation or dysuria. Objective - Vital Signs/Intake and Output Vital Signs (last 24 hours): Temp Pulse Resp BP Pulse Ox 99 F 86 20 125/63 99 09/19/17 23:35 09/19/17 23:35 09/19/17 23:35 09/19/17 23:35 09/19/17 23:35 Intake and Output: 09/19/17 09/20/17 18:59 06:59 Intake Total 3800 500 Output Total 930 1275 Balance 2870 -775 - Medications Medications: Current Medications Alprazolam (Xanax) 0.5 mg PO TID PRN PRN Reason: Anxiety Dextrose (Dextrose 50% Inj) 0 ml IV STAT PRN; Protocol PRN Reason: Hypoglycemia Protocol Dextrose (Glutose 15) 0 gm PO ONCE PRN; Protocol PRN Reason: Hypoglycemia Protocol Enoxaparin Sodium (Lovenox) 40 mg SC DAILY [facility] Glucagon (Glucagen Diagnostic Kit) 0 mg IM STAT PRN; Protocol PRN Reason: Hypoglycemia Protocol Hydromorphone HCl (Dilaudid) 1 mg IVP Q4H PRN PRN Reason: Pain, severe (8-10) Last Admin: 09/20/17 06:15 Dose: 1 mg Hydromorphone HCl (Dilaudid) 0.5 mg IVP Q4H PRN PRN Reason: Pain, moderate (4-7) Last Admin: 09/19/17 22:51 Dose: 0.5 mg Dextrose (Dextrose 5% In Water 1000 Ml) 1,000 mls @ 0 mls/hr IV .Q0M PRN; Protocol; Per Protocol PRN Reason: Hypoglycemia Protocol Lactated Ringer's (Lactated Ringer's) 1,000 mls @ 100 mls/hr IV .Q10H [facility] Last Admin: 09/20/17 03:42 Dose: 100 mls/hr BUPIVACAINE 0.125%/0.9% NACL (Bupivacaine-Ns 0.125% On-Q Slag Mixer) 600 mls @ 4 mls/ hr IJ ONCE ONE Stop: 09/25/17 16:59 Cefazolin Sodium 1,000 mg/ (Sodium Chloride) 50 mls @ 100 mls/hr IVPB Q8H [facility] PRN Reason: Protocol Last Admin: 09/20/17 01:15 Dose: 100 mls/hr Metronidazole (Flagyl) 500 mg in 100 mls @ 100 mls/hr IVPB Q8H [facility] PRN Reason: Protocol Last Admin: 09/20/17 03:00 Dose: 100 mls/hr Insulin Aspart (Novolog) 0 unit SC ACHS [facility] PRN Reason: Protocol Last Admin: 09/19/17 21:24 Dose: Not Given Losartan Potassium (Cozaar) 100 mg PO DAILY [facility] Last Admin: 09/19/17 09:16 Dose: 100 mg Metoprolol Succinate (Toprol Xl) 25 mg PO DAILY [facility] Last Admin: 09/19/17 09:15 Dose: 25 mg Ondansetron HCl (Zofran Inj) 4 mg IVP Q4 PRN PRN Reason: Nausea/Vomiting Rosuvastatin Calcium (Crestor) 40 mg PO HS [facility] Last Admin: 09/19/17 21:05 Dose: 40 mg Spironolactone (Aldactone) 25 mg PO DAILY [facility] Last Admin: 09/19/17 09:15 Dose: 25 mg - Labs Labs: 09/19/17 07:41 09/19/17 07:41 PT 12.5 SECONDS (9.7-12.2) H 09/19/17 07:41 INR 1.1 09/19/17 07:41 APTT 34 SECONDS (21-34) 09/19/17 07:41 - Constitutional Appears: No Acute Distress - Head Exam Head Exam: ATRAUMATIC, NORMAL INSPECTION - Eye Exam Eye Exam: EOMI, Normal appearance - ENT Exam ENT Exam: Mucous Membranes Moist - Respiratory Exam Respiratory Exam: Clear to Ausculation Bilateral, NORMAL BREATHING PATTERN - Cardiovascular Exam Cardiovascular Exam: REGULAR RHYTHM, +S1, +S2 - GI/Abdominal Exam GI & Abdominal Exam: Soft, Tenderness, Normal Bowel Sounds Additional comments: dressing - clean/dry/intact - Extremities Exam Extremities Exam: Normal Inspection - Neurological Exam Neurological Exam: Alert, Awake, Oriented x3 - Psychiatric Exam Psychiatric exam: Normal Affect - Skin Skin Exam: Normal Color Assessment and Plan - Assessment and Plan (Free Text) Assessment: 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 Aranda - s/p 09/19/17 robotic assisted laparoscopic right romero-colectomy with primary extracorporal ileocolic anastomosis, partial omentectomy - patient currently on a Qpump for pain - Medically Optimized - Detski Score: 5 --> 6% risk of complications - EKG: NSR at 60bpm; Type I AV block; prior ischemia shown on leads I and II - Chest Xray: No acute cardiopulmonary disease appreciated. Stable left basilar fibrosis. - ECHO (07/05/17): LVEF 65%; mild left ventricular hypertrophy (please see report for full details) - Cardio Consult: Dr. Raphael --> help appreciated 2.) History of CABG in 2002 - Continue home medications * Losartan 100mg daily * Aspirin 81mg po daily - on hold * Metoprolol Succinate 25mg daily * Crestor 40mg po HS - ECHO (07/05/17): LVEF 65%; mild left ventricular hypertrophy (please see report for full details) 3.) History of HTN Continue home medications * Metoprolol Succinate 25mg daily * Losartan 100mg daily 4.) History of CAD - Crestor 40mg po HS - Lipid Profile (07/30/17): Triglycerides 107; Total Cholesterol 233; LDL 108; HDL 56 5.) History of DM Type II - ISS - Novolog (70/30) 14 units SC before breakfast (starting 09/21/17) - Novolog (70/30) 7 units SC bedtime (starting 09/20/17) - Accuchecks - Hypoglycemia Protocol 6.) Prophylaxis - Lovenox 40SC - placed on hold - SCDs - GI prophylaxis not indicated at this time Case discussed with Dr. Jeff Egan PGY-1 <Alejandro Aguilar - Last Filed: 09/21/17 18:32> Objective - Vital Signs/Intake and Output Vital Signs (last 24 hours): Temp Pulse Resp BP Pulse Ox 98.7 F 68 18 152/74 H 95 09/21/17 15:50 09/21/17 15:50 09/21/17 15:50 09/21/17 15:50 09/21/17 15:50 Intake and Output: 09/21/17 09/21/17 06:59 18:59 Output Total 1909 595 Balance -1909 -595 - Medications Medications: Current Medications Alprazolam (Xanax) 0.5 mg PO TID PRN PRN Reason: Anxiety Aspirin (Ecotrin) 81 mg PO DAILY [facility] Last Admin: 09/21/17 10:09 Dose: 81 mg Dextrose (Dextrose 50% Inj) 0 ml IV STAT PRN; Protocol PRN Reason: Hypoglycemia Protocol Dextrose (Glutose 15) 0 gm PO ONCE PRN; Protocol PRN Reason: Hypoglycemia Protocol Enoxaparin Sodium (Lovenox) 40 mg SC DAILY [facility] Last Admin: 09/21/17 10:10 Dose: 40 mg Glucagon (Glucagen Diagnostic Kit) 0 mg IM STAT PRN; Protocol PRN Reason: Hypoglycemia Protocol Hydromorphone HCl (Dilaudid) 0.5 mg IVP Q4H PRN PRN Reason: Pain, moderate (4-7) Last Admin: 09/21/17 17:10 Dose: 0.5 mg Hydromorphone HCl (Dilaudid) 1 mg IVP Q4H PRN PRN Reason: Pain, severe (8-10) Last Admin: 09/21/17 10:38 Dose: 1 mg Dextrose (Dextrose 5% In Water 1000 Ml) 1,000 mls @ 0 mls/hr IV .Q0M PRN; Protocol; Per Protocol PRN Reason: Hypoglycemia Protocol BUPIVACAINE 0.125%/0.9% NACL (Bupivacaine-Ns 0.125% On-Q Slag Mixer) 600 mls @ 4 mls/ hr IJ ONCE ONE Stop: 09/25/17 16:59 Potassium Chloride/Dextrose/Sod Cl (Potassium Chl 20 Meq In D5-1/2ns) 1,000 mls @ 100 mls/hr IV .Q10H [facility] Last Admin: 09/21/17 17:07 Dose: 100 mls/hr Insulin Aspart (Novolog) 0 unit SC ACHS [facility] PRN Reason: Protocol Last Admin: 09/21/17 17:07 Dose: 4 unit Insulin Aspart (Novolog Mix 70/30 (70/30 Units/Ml)) 7 units SC HS [facility] Last Admin: 09/20/17 22:29 Dose: 7 units Insulin Aspart (Novolog Mix 70/30 (70/30 Units/Ml)) 14 units SC ACB [facility] Last Admin: 09/21/17 08:25 Dose: 14 units Loratadine (Claritin) 10 mg PO DAILY [facility] Last Admin: 09/21/17 15:27 Dose: 10 mg Losartan Potassium (Cozaar) 100 mg PO DAILY [facility] Last Admin: 09/21/17 10:09 Dose: 100 mg Metoprolol Succinate (Toprol Xl) 25 mg PO DAILY [facility] Last Admin: 09/21/17 10:10 Dose: 25 mg Ondansetron HCl (Zofran Inj) 4 mg IVP Q4 PRN PRN Reason: Nausea/Vomiting Rosuvastatin Calcium (Crestor) 40 mg PO HS [facility] Last Admin: 09/20/17 22:29 Dose: 40 mg Spironolactone (Aldactone) 25 mg PO DAILY [facility] Last Admin: 09/21/17 10:09 Dose: 25 mg - Labs Labs: 09/21/17 07:38 09/21/17 07:38 PT 12.5 SECONDS (9.7-12.2) H 09/19/17 07:41 INR 1.1 09/19/17 07:41 APTT 34 SECONDS (21-34) 09/19/17 07:41 Attending/Attestation - Attestation I have personally seen and examined this patient.: Yes I have fully participated in the care of the patient.: Yes I have reviewed all pertinent clinical information, including history, physical exam and plan: Yes Notes (Text): 09/21/17 18:31 Patient was seen on 09/20/17. Care was discussed with resident Dr. Egan. Alejandro Aguilar D.O.
[2017-09-20] MEDS: (Novolog) Insulin Aspart, Recombinant 100 u/ml 10 ml vial SC SCH ×4 (08:21→21:27)
[2017-09-20 08:25] LABS: BASO % 0.3 % (0.0-2.0); EOS % 0.5 % (0.0-4.0); HEMOGLOBIN 10.3 g/dL (12.0-18.0); LYMPH # 1.5 K/uL (1.0-4.3); LYMPH % 17.2 % (20.0-40.0); MEAN CELL VOLUME 79.7 fL (80.0-94.0); MEAN CORPUSCULAR HEMOGLOBIN 27.7 pg (27.0-31.0); MEAN CORPUSCULAR HGB CONC 34.8 g/dL (33.0-37.0); MEAN PLATELET VOLUME 9.2 fL (7.2-11.7); MONO # 0.5 K/uL (0.0-0.8); MONO % 5.2 % (0.0-10.0); NEUT # 6.7 K/uL (1.8-7.0); NEUT % 76.8 % (50.0-75.0); RBC 3.7 Mil/uL (4.40-5.90); WHITE BLOOD COUNT 8.8 K/uL (4.8-10.8)
[2017-09-20] MEDS: Enoxaparin 40 mg Syringe SC SCH (09:34)
[2017-09-20] MEDS: Metoprolol Succinate 25 mg XL Tab PO SCH (09:34)
[2017-09-20 10:22] LABS: ALB/GLOB RATIO 1.1 (1.0-2.1); ALBUMIN 3.3 g/dL (3.5-5.0); ALT/SGPT 29 U/L (21-72); AST/SGOT 30 U/L (17-59); BLOOD UREA NITROGEN 22 mg/dL (9-20); CALCIUM 8.6 mg/dl (8.6-10.4); GFR AFRICAN-AMERICAN > 60; GFR NON-AFRICAN AMERICAN 54
--- NOTE | 2017-09-20 10:29 | CP.PCM.PN ---
<Jaden Dalal - Last Filed: 09/20/17 10:25> Subjective - Date & Time of Evaluation Date of Evaluation: 09/20/17 Time of Evaluation: 10:26 - Subjective Subjective: General Surgery Progress Note for Dr. Aranda This 71M was seen and evaluated this Am at bedside no acute events overnight. He denies any flatus or BM. Denies nausea or vomiting. Requesting water to drink. Denies any chest pain or sob Objective - Vital Signs/Intake and Output Vital Signs (last 24 hours): Temp Pulse Resp BP Pulse Ox 99.1 F 83 18 144/72 98 09/20/17 07:00 09/20/17 07:00 09/20/17 07:00 09/20/17 07:00 09/20/17 07:00 Intake and Output: 09/20/17 09/20/17 06:59 18:59 Intake Total 500 Output Total 1275 Balance -775 - Medications Medications: Current Medications Alprazolam (Xanax) 0.5 mg PO TID PRN PRN Reason: Anxiety Dextrose (Dextrose 50% Inj) 0 ml IV STAT PRN; Protocol PRN Reason: Hypoglycemia Protocol Dextrose (Glutose 15) 0 gm PO ONCE PRN; Protocol PRN Reason: Hypoglycemia Protocol Enoxaparin Sodium (Lovenox) 40 mg SC DAILY [facility] Last Admin: 09/20/17 09:34 Dose: 40 mg Glucagon (Glucagen Diagnostic Kit) 0 mg IM STAT PRN; Protocol PRN Reason: Hypoglycemia Protocol Hydromorphone HCl (Dilaudid) 1 mg IVP Q4H PRN PRN Reason: Pain, severe (8-10) Last Admin: 09/20/17 06:15 Dose: 1 mg Hydromorphone HCl (Dilaudid) 0.5 mg IVP Q4H PRN PRN Reason: Pain, moderate (4-7) Last Admin: 09/19/17 22:51 Dose: 0.5 mg Dextrose (Dextrose 5% In Water 1000 Ml) 1,000 mls @ 0 mls/hr IV .Q0M PRN; Protocol; Per Protocol PRN Reason: Hypoglycemia Protocol Lactated Ringer's (Lactated Ringer's) 1,000 mls @ 100 mls/hr IV .Q10H [facility] Last Admin: 09/20/17 03:42 Dose: 100 mls/hr BUPIVACAINE 0.125%/0.9% NACL (Bupivacaine-Ns 0.125% On-Q Band Attacher) 600 mls @ 4 mls/ hr IJ ONCE ONE Stop: 09/25/17 16:59 Insulin Aspart (Novolog) 0 unit SC ACHS [facility] PRN Reason: Protocol Last Admin: 09/20/17 08:21 Dose: 6 unit Losartan Potassium (Cozaar) 100 mg PO DAILY [facility] Last Admin: 09/20/17 09:34 Dose: 100 mg Metoprolol Succinate (Toprol Xl) 25 mg PO DAILY [facility] Last Admin: 09/20/17 09:34 Dose: 25 mg Ondansetron HCl (Zofran Inj) 4 mg IVP Q4 PRN PRN Reason: Nausea/Vomiting Rosuvastatin Calcium (Crestor) 40 mg PO HS [facility] Last Admin: 09/19/17 21:05 Dose: 40 mg Spironolactone (Aldactone) 25 mg PO DAILY [facility] Last Admin: 09/20/17 09:34 Dose: 25 mg - Labs Labs: 09/20/17 08:00 09/20/17 10:07 PT 12.5 SECONDS (9.7-12.2) H 09/19/17 07:41 INR 1.1 09/19/17 07:41 APTT 34 SECONDS (21-34) 09/19/17 07:41 - Constitutional Appears: Non-toxic, No Acute Distress - Head Exam Head Exam: NORMAL INSPECTION - Eye Exam Eye Exam: EOMI - ENT Exam ENT Exam: Mucous Membranes Moist - Respiratory Exam Respiratory Exam: NORMAL BREATHING PATTERN - Cardiovascular Exam Cardiovascular Exam: +S1, +S2 - GI/Abdominal Exam GI & Abdominal Exam: Soft. absent: Firm, Guarding, Rigid, Tenderness - Neurological Exam Neurological Exam: Alert, Awake - Psychiatric Exam Psychiatric exam: Normal Affect, Normal Mood - Skin Skin Exam: Dry, Intact Assessment and Plan - Assessment and Plan (Free Text) Assessment: 71M POD #1 s/p robotic right hemicolectomy and doing well CLD Start DVT PPX D/C ABX D/C Robin Continue pain control Continue home medication Monitor outputs Followup pathology D/W Dr. Manoj Dalal PGY2 <Arian Aranda B - Last Filed: 09/21/17 18:35> Objective - Vital Signs/Intake and Output Vital Signs (last 24 hours): Temp Pulse Resp BP Pulse Ox 98.7 F 68 18 152/74 H 95 09/21/17 15:50 09/21/17 15:50 09/21/17 15:50 09/21/17 15:50 09/21/17 15:50 Intake and Output: 09/21/17 09/21/17 06:59 18:59 Output Total 2908 691 Balance -1910 -695 - Medications Medications: Current Medications Alprazolam (Xanax) 0.5 mg PO TID PRN PRN Reason: Anxiety Aspirin (Ecotrin) 81 mg PO DAILY [facility] Last Admin: 09/21/17 10:09 Dose: 81 mg Dextrose (Dextrose 50% Inj) 0 ml IV STAT PRN; Protocol PRN Reason: Hypoglycemia Protocol Dextrose (Glutose 15) 0 gm PO ONCE PRN; Protocol PRN Reason: Hypoglycemia Protocol Enoxaparin Sodium (Lovenox) 40 mg SC DAILY [facility] Last Admin: 09/21/17 10:10 Dose: 40 mg Glucagon (Glucagen Diagnostic Kit) 0 mg IM STAT PRN; Protocol PRN Reason: Hypoglycemia Protocol Hydromorphone HCl (Dilaudid) 0.5 mg IVP Q4H PRN PRN Reason: Pain, moderate (4-7) Last Admin: 09/21/17 17:10 Dose: 0.5 mg Hydromorphone HCl (Dilaudid) 1 mg IVP Q4H PRN PRN Reason: Pain, severe (8-10) Last Admin: 09/21/17 10:38 Dose: 1 mg Dextrose (Dextrose 5% In Water 1000 Ml) 1,000 mls @ 0 mls/hr IV .Q0M PRN; Protocol; Per Protocol PRN Reason: Hypoglycemia Protocol BUPIVACAINE 0.125%/0.9% NACL (Bupivacaine-Ns 0.125% On-Q Band Attacher) 600 mls @ 4 mls/ hr IJ ONCE ONE Stop: 09/25/17 16:59 Potassium Chloride/Dextrose/Sod Cl (Potassium Chl 20 Meq In D5-1/2ns) 1,000 mls @ 100 mls/hr IV .Q10H [facility] Last Admin: 09/21/17 17:07 Dose: 100 mls/hr Insulin Aspart (Novolog) 0 unit SC ACHS [facility] PRN Reason: Protocol Last Admin: 09/21/17 17:07 Dose: 4 unit Insulin Aspart (Novolog Mix 70/30 (70/30 Units/Ml)) 7 units SC HS [facility] Last Admin: 09/20/17 22:29 Dose: 7 units Insulin Aspart (Novolog Mix 70/30 (70/30 Units/Ml)) 14 units SC ACB [facility] Last Admin: 09/21/17 08:25 Dose: 14 units Loratadine (Claritin) 10 mg PO DAILY [facility] Last Admin: 09/21/17 15:27 Dose: 10 mg Losartan Potassium (Cozaar) 100 mg PO DAILY [facility] Last Admin: 09/21/17 10:09 Dose: 100 mg Metoprolol Succinate (Toprol Xl) 25 mg PO DAILY [facility] Last Admin: 09/21/17 10:10 Dose: 25 mg Ondansetron HCl (Zofran Inj) 4 mg IVP Q4 PRN PRN Reason: Nausea/Vomiting Rosuvastatin Calcium (Crestor) 40 mg PO [facility] Last Admin: 09/20/17 22:29 Dose: 40 mg Spironolactone (Aldactone) 25 mg PO DAILY [facility] Last Admin: 09/21/17 10:09 Dose: 25 mg - Labs Labs: 09/21/17 07:38 09/21/17 07:38 PT 12.5 SECONDS (9.7-12.2) H 09/19/17 07:41 INR 1.1 09/19/17 07:41 APTT 34 SECONDS (21-34) 09/19/17 07:41 Attending/Attestation - Attestation I have personally seen and examined this patient.: Yes I have fully participated in the care of the patient.: Yes I have reviewed all pertinent clinical information, including history, physical exam and plan: Yes Notes (Text): Pt is seen and examined at bedside Agree with above note and assessment Pt is S/P Robotic Right Hemicolectomy OOB to walk DC Robin, antibiotics DVT prophylaxis NPO, IVF Plan d.w pt in detail Risk and benefit explained in detail.
--- NOTE | 2017-09-20 11:01 | CP.PCM.PCO ---
Physician Communication Note - Physician Communication Note Physician Communication Note: See Above
[2017-09-20] MEDS: HYDROmorphone 0.5 mg/0.5 ml ISec IVP PRN ×2 (18:15→22:30)
[2017-09-20] MEDS: (Novolog Mix 70/30) Insulin Aspart/Insulin Aspar 100 units/ml SC SCH (22:29)
[2017-09-21] MEDS: HYDROmorphone 0.5 mg/0.5 ml ISec IVP PRN ×4 (05:57→21:29)
--- NOTE | 2017-09-21 06:03 | CARD ---
APPROVED REPORT EKG Measurement Heart [id number] MA [id number] [id number] <Conclusion> Sinus rhythm with 1st degree AV block Possible Inferior infarct, age undetermined Abnormal ECG
[2017-09-21] MEDS: Potassium Ch 20mEq in D5-1/2NS 1,000 ML IV SCH ×2 (06:46→17:07)
--- NOTE | 2017-09-21 06:59 | CP.PCM.PN ---
<Meenu Egan - Last Filed: 09/21/17 10:36> Subjective - Date & Time of Evaluation Date of Evaluation: 09/21/17 Time of Evaluation: 07:00 - Subjective Subjective: Medicine Progress Note: Patient was seen and examined at bedside in the AM. Patient is not in acute stress. Patient states he has mild right lower abdominal pain. Patient states has had not passed flatus or had a bowel movement yet. Patient denies chest pain, shortness of breath, palpitations, fever, nausea or vomiting. Objective - Vital Signs/Intake and Output Vital Signs (last 24 hours): Temp Pulse Resp BP Pulse Ox 99.4 F 81 20 132/65 96 09/20/17 23:50 09/20/17 23:50 09/20/17 23:50 09/20/17 23:50 09/20/17 23:50 Intake and Output: 09/20/17 09/21/17 18:59 06:59 Output Total 1030 1910 Balance -1030 -1910 - Medications Medications: Current Medications Alprazolam (Xanax) 0.5 mg PO TID PRN PRN Reason: Anxiety Dextrose (Dextrose 50% Inj) 0 ml IV STAT PRN; Protocol PRN Reason: Hypoglycemia Protocol Dextrose (Glutose 15) 0 gm PO ONCE PRN; Protocol PRN Reason: Hypoglycemia Protocol Enoxaparin Sodium (Lovenox) 40 mg SC DAILY [facility] Last Admin: 09/20/17 09:34 Dose: 40 mg Glucagon (Glucagen Diagnostic Kit) 0 mg IM STAT PRN; Protocol PRN Reason: Hypoglycemia Protocol Hydromorphone HCl (Dilaudid) 0.5 mg IVP Q4H PRN PRN Reason: Pain, moderate (4-7) Last Admin: 09/21/17 05:57 Dose: 0.5 mg Hydromorphone HCl (Dilaudid) 1 mg IVP Q4H PRN PRN Reason: Pain, severe (8-10) Last Admin: 09/20/17 22:30 Dose: 1 mg Dextrose (Dextrose 5% In Water 1000 Ml) 1,000 mls @ 0 mls/hr IV .Q0M PRN; Protocol; Per Protocol PRN Reason: Hypoglycemia Protocol BUPIVACAINE 0.125%/0.9% NACL (Bupivacaine-Ns 0.125% On-Q Grill Attendant) 600 mls @ 4 mls/ hr IJ ONCE ONE Stop: 09/25/17 16:59 Potassium Chloride/Dextrose/Sod Cl (Potassium Chl 20 Meq In D5-1/2ns) 1,000 mls @ 100 mls/hr IV .Q10H [facility] Last Admin: 09/21/17 06:46 Dose: 100 mls/hr Insulin Aspart (Novolog) 0 unit SC ACHS [facility] PRN Reason: Protocol Last Admin: 09/20/17 21:27 Dose: Not Given Insulin Aspart (Novolog Mix 70/30 (70/30 Units/Ml)) 7 units SC HS [facility] Last Admin: 09/20/17 22:29 Dose: 7 units Insulin Aspart (Novolog Mix 70/30 (70/30 Units/Ml)) 14 units SC ACB [facility] Losartan Potassium (Cozaar) 100 mg PO DAILY [facility] Last Admin: 09/20/17 09:34 Dose: 100 mg Metoprolol Succinate (Toprol Xl) 25 mg PO DAILY [facility] Last Admin: 09/20/17 09:34 Dose: 25 mg Ondansetron HCl (Zofran Inj) 4 mg IVP Q4 PRN PRN Reason: Nausea/Vomiting Rosuvastatin Calcium (Crestor) 40 mg PO HS [facility] Last Admin: 09/20/17 22:29 Dose: 40 mg Spironolactone (Aldactone) 25 mg PO DAILY [facility] Last Admin: 09/20/17 09:34 Dose: 25 mg - Labs Labs: 09/20/17 08:00 09/20/17 10:07 PT 12.5 SECONDS (9.7-12.2) H 09/19/17 07:41 INR 1.1 09/19/17 07:41 APTT 34 SECONDS (21-34) 09/19/17 07:41 - Constitutional Appears: No Acute Distress - Head Exam Head Exam: ATRAUMATIC, NORMAL INSPECTION - Eye Exam Eye Exam: absent: Normal appearance (Left eye- clouding) - ENT Exam ENT Exam: Mucous Membranes Moist - Respiratory Exam Respiratory Exam: Clear to Ausculation Bilateral, NORMAL BREATHING PATTERN - Cardiovascular Exam Cardiovascular Exam: REGULAR RHYTHM, +S1, +S2 - GI/Abdominal Exam GI & Abdominal Exam: Soft, Normal Bowel Sounds. 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 Stable left basilar fibrosis. - ECHO (07/05/17): LVEF 65%; mild left ventricular hypertrophy (please see report for full details) - Cardio Consult: Dr. Raphael --> help appreciated 2.) History of CABG in 2002 - Continue home medications * Losartan 100mg daily * Aspirin 81mg po daily * Metoprolol Succinate 25mg daily * Crestor 40mg po HS - ECHO (07/05/17): LVEF 65%; mild left ventricular hypertrophy (please see report for full details) 3.) History of HTN Continue home medications * Metoprolol Succinate 25mg daily * Losartan 100mg daily 4.) History of CAD - Crestor 40mg po HS - Lipid Profile (07/30/17): Triglycerides 107; Total Cholesterol 233; LDL 108; HDL 56 5.) History of DM Type II - ISS - Novolog (70/30) 14 units SC before breakfast (starting 09/21/17) - Novolog (70/30) 7 units SC bedtime (starting 09/20/17) - Accuchecks - Hypoglycemia Protocol 6.) Prophylaxis - Lovenox 40SC - SCDs - GI prophylaxis not indicated at this time Case discussed with Dr. Jeff Egan PGY-1 <Alejandro Aguilar - Last Filed: 09/21/17 18:30> Objective - Vital Signs/Intake and Output Vital Signs (last 24 hours): Temp Pulse Resp BP Pulse Ox 98.7 F 68 18 152/74 H 95 09/21/17 15:50 09/21/17 15:50 09/21/17 15:50 09/21/17 15:50 09/21/17 15:50 Intake and Output: 09/21/17 09/21/17 06:59 18:59 Output Total 0818 595 Balance -1910 -595 - Medications Medications: Current Medications Alprazolam (Xanax) 0.5 mg PO TID PRN PRN Reason: Anxiety Aspirin (Ecotrin) 81 mg PO DAILY [facility] Last Admin: 09/21/17 10:09 Dose: 81 mg Dextrose (Dextrose 50% Inj) 0 ml IV STAT PRN; Protocol PRN Reason: Hypoglycemia Protocol Dextrose (Glutose 15) 0 gm PO ONCE PRN; Protocol PRN Reason: Hypoglycemia Protocol Enoxaparin Sodium (Lovenox) 40 mg SC DAILY [facility] Last Admin: 09/21/17 10:10 Dose: 40 mg Glucagon (Glucagen Diagnostic Kit) 0 mg IM STAT PRN; Protocol PRN Reason: Hypoglycemia Protocol Hydromorphone HCl (Dilaudid) 0.5 mg IVP Q4H PRN PRN Reason: Pain, moderate (4-7) Last Admin: 09/21/17 17:10 Dose: 0.5 mg Hydromorphone HCl (Dilaudid) 1 mg IVP Q4H PRN PRN Reason: Pain, severe (8-10) Last Admin: 09/21/17 10:38 Dose: 1 mg Dextrose (Dextrose 5% In Water 1000 Ml) 1,000 mls @ 0 mls/hr IV .Q0M PRN; Protocol; Per Protocol PRN Reason: Hypoglycemia Protocol BUPIVACAINE 0.125%/0.9% NACL (Bupivacaine-Ns 0.125% On-Q Grill Attendant) 600 mls @ 4 mls/ hr IJ ONCE ONE Stop: 09/25/17 16:59 Potassium Chloride/Dextrose/Sod Cl (Potassium Chl 20 Meq In D5-1/2ns) 1,000 mls @ 100 mls/hr IV .Q10H [facility] Last Admin: 09/21/17 17:07 Dose: 100 mls/hr Insulin Aspart (Novolog) 0 unit SC ACHS [facility] PRN Reason: Protocol Last Admin: 09/21/17 17:07 Dose: 4 unit Insulin Aspart (Novolog Mix 70/30 (70/30 Units/Ml)) 7 units SC HS [facility] Last Admin: 09/20/17 22:29 Dose: 7 units Insulin Aspart (Novolog Mix 70/30 (70/30 Units/Ml)) 14 units SC ACB [facility] Last Admin: 09/21/17 08:25 Dose: 14 units Loratadine (Claritin) 10 mg PO DAILY [facility] Last Admin: 09/21/17 15:27 Dose: 10 mg Losartan Potassium (Cozaar) 100 mg PO DAILY [facility] Last Admin: 09/21/17 10:09 Dose: 100 mg Metoprolol Succinate (Toprol Xl) 25 mg PO DAILY [facility] Last Admin: 09/21/17 10:10 Dose: 25 mg Ondansetron HCl (Zofran Inj) 4 mg IVP Q4 PRN PRN Reason: Nausea/Vomiting Rosuvastatin Calcium (Crestor) 40 mg PO HS [facility] Last Admin: 09/20/17 22:29 Dose: 40 mg Spironolactone (Aldactone) 25 mg PO DAILY [facility] Last Admin: 09/21/17 10:09 Dose: 25 mg - Labs Labs: 09/21/17 07:38 09/21/17 07:38 PT 12.5 SECONDS (9.7-12.2) H 09/19/17 07:41 INR 1.1 09/19/17 07:41 APTT 34 SECONDS (21-34) 09/19/17 07:41 Attending/Attestation - Attestation I have personally seen and examined this patient.: Yes I have fully participated in the care of the patient.: Yes I have reviewed all pertinent clinical information, including history, physical exam and plan: Yes Notes (Text): 09/21/17 18:30 Patient was seen and examined at 8 AM 09/21/17 Exam, assessment and plan were gone over with resident Dr. Egan. Alejandro Aguilar D.O.
[2017-09-21] MEDS ORDERED: (Novolog Mix 70/30) Insulin Aspart/Insulin Aspar 100 units/ml SC SCH (07:30)
[2017-09-21 07:57] LABS: BASO # 0.1 K/uL (0.0-0.2); BASO % 0.5 % (0.0-2.0); EOS # 0.3 K/uL (0.0-0.7); EOS % 2.4 % (0.0-4.0); HEMOGLOBIN 10.7 g/dL (12.0-18.0); LYMPH # 1.5 K/uL (1.0-4.3); MEAN CELL VOLUME 80.5 fL (80.0-94.0); MEAN CORPUSCULAR HEMOGLOBIN 27.8 pg (27.0-31.0); MEAN CORPUSCULAR HGB CONC 34.5 g/dL (33.0-37.0); MEAN PLATELET VOLUME 9.6 fL (7.2-11.7); MONO # 0.4 K/uL (0.0-0.8); MONO % 4.1 % (0.0-10.0); NEUT # 8.3 K/uL (1.8-7.0); RBC 3.84 Mil/uL (4.40-5.90); RED CELL DISTRIBUTION WIDTH 14.2 % (11.5-14.5); WHITE BLOOD COUNT 10.5 K/uL (4.8-10.8)
[2017-09-21 08:27] LABS: ALBUMIN 3.2 g/dL (3.5-5.0); ALT/SGPT 21 U/L (21-72); AST/SGOT 30 U/L (17-59); BLOOD UREA NITROGEN 14 mg/dL (9-20); CALCIUM 8.6 mg/dl (8.6-10.4); GFR AFRICAN-AMERICAN > 60; GFR NON-AFRICAN AMERICAN > 60
[2017-09-21] MEDS: (Novolog) Insulin Aspart, Recombinant 100 u/ml 10 ml vial SC SCH ×4 (08:40→21:25)
--- NOTE | 2017-09-21 09:51 | CP.PCM.PN ---
<Jaden Dalal - Last Filed: 09/21/17 09:48> Subjective - Date & Time of Evaluation Date of Evaluation: 09/21/17 Time of Evaluation: 09:49 - Subjective Subjective: General Surgery Progress note for Dr. Aranda This 71M was seen and examined this AM at bedside no acute events overnight. Tolerating clears. Denies flatus or BM. Denies any Chest Pain or SOB. Objective - Vital Signs/Intake and Output Vital Signs (last 24 hours): Temp Pulse Resp BP Pulse Ox 99.0 F 66 20 137/62 94 L 09/21/17 07:00 09/21/17 07:00 09/21/17 07:00 09/21/17 07:00 09/21/17 07:00 Intake and Output: 09/21/17 09/21/17 06:59 18:59 Output Total 1910 Balance -1910 - Medications Medications: Current Medications Alprazolam (Xanax) 0.5 mg PO TID PRN PRN Reason: Anxiety Aspirin (Ecotrin) 81 mg PO DAILY [facility] Dextrose (Dextrose 50% Inj) 0 ml IV STAT PRN; Protocol PRN Reason: Hypoglycemia Protocol Dextrose (Glutose 15) 0 gm PO ONCE PRN; Protocol PRN Reason: Hypoglycemia Protocol Enoxaparin Sodium (Lovenox) 40 mg SC DAILY [facility] Last Admin: 09/20/17 09:34 Dose: 40 mg Glucagon (Glucagen Diagnostic Kit) 0 mg IM STAT PRN; Protocol PRN Reason: Hypoglycemia Protocol Hydromorphone HCl (Dilaudid) 0.5 mg IVP Q4H PRN PRN Reason: Pain, moderate (4-7) Last Admin: 09/21/17 05:57 Dose: 0.5 mg Hydromorphone HCl (Dilaudid) 1 mg IVP Q4H PRN PRN Reason: Pain, severe (8-10) Last Admin: 09/20/17 22:30 Dose: 1 mg Dextrose (Dextrose 5% In Water 1000 Ml) 1,000 mls @ 0 mls/hr IV .Q0M PRN; Protocol; Per Protocol PRN Reason: Hypoglycemia Protocol BUPIVACAINE 0.125%/0.9% NACL (Bupivacaine-Ns 0.125% On-Q Deck Specialist) 600 mls @ 4 mls/ hr IJ ONCE ONE Stop: 09/25/17 16:59 Potassium Chloride/Dextrose/Sod Cl (Potassium Chl 20 Meq In D5-1/2ns) 1,000 mls @ 100 mls/hr IV .Q10H [facility] Last Admin: 09/21/17 06:46 Dose: 100 mls/hr Insulin Aspart (Novolog) 0 unit SC ACHS [facility] PRN Reason: Protocol Last Admin: 09/21/17 08:40 Dose: 3 unit Insulin Aspart (Novolog Mix 70/30 (70/30 Units/Ml)) 7 units SC HS [facility] Last Admin: 09/20/17 22:29 Dose: 7 units Insulin Aspart (Novolog Mix 70/30 (70/30 Units/Ml)) 14 units SC ACB [facility] Last Admin: 09/21/17 08:25 Dose: 14 units Losartan Potassium (Cozaar) 100 mg PO DAILY [facility] Last Admin: 09/20/17 09:34 Dose: 100 mg Metoprolol Succinate (Toprol Xl) 25 mg PO DAILY [facility] Last Admin: 09/20/17 09:34 Dose: 25 mg Ondansetron HCl (Zofran Inj) 4 mg IVP Q4 PRN PRN Reason: Nausea/Vomiting Rosuvastatin Calcium (Crestor) 40 mg PO HS [facility] Last Admin: 09/20/17 22:29 Dose: 40 mg Spironolactone (Aldactone) 25 mg PO DAILY [facility] Last Admin: 09/20/17 09:34 Dose: 25 mg - Labs Labs: 09/21/17 07:38 09/21/17 07:38 PT 12.5 SECONDS (9.7-12.2) H 09/19/17 07:41 INR 1.1 09/19/17 07:41 APTT 34 SECONDS (21-34) 09/19/17 07:41 - Constitutional Appears: Non-toxic, No Acute Distress - Head Exam Head Exam: ATRAUMATIC, NORMOCEPHALIC - Eye Exam Eye Exam: EOMI, Normal appearance - ENT Exam ENT Exam: Mucous Membranes Moist - Respiratory Exam Respiratory Exam: NORMAL BREATHING PATTERN - Cardiovascular Exam Cardiovascular Exam: REGULAR RHYTHM - GI/Abdominal Exam GI & Abdominal Exam: Soft, Tenderness (Right sided abdominal tenderness). absent: Guarding, Rigid - Neurological Exam Neurological Exam: Alert, Awake - Psychiatric Exam Psychiatric exam: Normal Affect, Normal Mood - Skin Skin Exam: Dry, Intact Assessment and Plan - Assessment and Plan (Free Text) Assessment: 71M POD #2 s/p robotic right hemicolectomy and doing well CLD Continue DVT PPX Continue pain control Continue home medication Monitor outputs Followup pathology D/W Dr. Manoj Dalal PGY2 <Arian Aranda - Last Filed: 09/21/17 18:38> Objective - Vital Signs/Intake and Output Vital Signs (last 24 hours): Temp Pulse Resp BP Pulse Ox 98.7 F 68 18 152/74 H 95 09/21/17 15:50 09/21/17 15:50 09/21/17 15:50 09/21/17 15:50 09/21/17 15:50 Intake and Output: 09/21/17 09/21/17 06:59 18:59 Output Total 693 Balance -1910 -071 - Medications Medications: Current Medications Alprazolam (Xanax) 0.5 mg PO TID PRN PRN Reason: Anxiety Aspirin (Ecotrin) 81 mg PO DAILY [facility] Last Admin: 09/21/17 10:09 Dose: 81 mg Dextrose (Dextrose 50% Inj) 0 ml IV STAT PRN; Protocol PRN Reason: Hypoglycemia Protocol Dextrose (Glutose 15) 0 gm PO ONCE PRN; Protocol PRN Reason: Hypoglycemia Protocol Enoxaparin Sodium (Lovenox) 40 mg SC DAILY [facility] Last Admin: 09/21/17 10:10 Dose: 40 mg Glucagon (Glucagen Diagnostic Kit) 0 mg IM STAT PRN; Protocol PRN Reason: Hypoglycemia Protocol Hydromorphone HCl (Dilaudid) 0.5 mg IVP Q4H PRN PRN Reason: Pain, moderate (4-7) Last Admin: 09/21/17 17:10 Dose: 0.5 mg Hydromorphone HCl (Dilaudid) 1 mg IVP Q4H PRN PRN Reason: Pain, severe (8-10) Last Admin: 09/21/17 10:38 Dose: 1 mg Dextrose (Dextrose 5% In Water 1000 Ml) 1,000 mls @ 0 mls/hr IV .Q0M PRN; Protocol; Per Protocol PRN Reason: Hypoglycemia Protocol BUPIVACAINE 0.125%/0.9% NACL (Bupivacaine-Ns 0.125% On-Q Deck Specialist) 600 mls @ 4 mls/ hr IJ ONCE ONE Stop: 09/25/17 16:59 Potassium Chloride/Dextrose/Sod Cl (Potassium Chl 20 Meq In D5-1/2ns) 1,000 mls @ 100 mls/hr IV .Q10H [facility] Last Admin: 09/21/17 17:07 Dose: 100 mls/hr Insulin Aspart (Novolog) 0 unit SC ACHS [facility] PRN Reason: Protocol Last Admin: 09/21/17 17:07 Dose: 4 unit Insulin Aspart (Novolog Mix 70/30 (70/30 Units/Ml)) 7 units SC HS [facility] Last Admin: 09/20/17 22:29 Dose: 7 units Insulin Aspart (Novolog Mix 70/30 (70/30 Units/Ml)) 14 units SC ACB [facility] Last Admin: 09/21/17 08:25 Dose: 14 units Loratadine (Claritin) 10 mg PO DAILY [facility] Last Admin: 09/21/17 15:27 Dose: 10 mg Losartan Potassium (Cozaar) 100 mg PO DAILY [facility] Last Admin: 09/21/17 10:09 Dose: 100 mg Metoprolol Succinate (Toprol Xl) 25 mg PO DAILY [facility] Last Admin: 09/21/17 10:10 Dose: 25 mg Ondansetron HCl (Zofran Inj) 4 mg IVP Q4 PRN PRN Reason: Nausea/Vomiting Rosuvastatin Calcium (Crestor) 40 mg PO HS [facility] Last Admin: 09/20/17 22:29 Dose: 40 mg Spironolactone (Aldactone) 25 mg PO DAILY [facility] Last Admin: 09/21/17 10:09 Dose: 25 mg - Labs Labs: 09/21/17 07:38 09/21/17 07:38 PT 12.5 SECONDS (9.7-12.2) H 09/19/17 07:41 INR 1.1 09/19/17 07:41 APTT 34 SECONDS (21-34) 09/19/17 07:41 Attending/Attestation - Attestation I have personally seen and examined this patient.: Yes I have fully participated in the care of the patient.: Yes I have reviewed all pertinent clinical information, including history, physical exam and plan: Yes Notes (Text): Pt is seen and examined at bedside Agree with above note and assessment Pt is improving clinically OOB to walk c.w clear liquid diet Plan d.w pt in detail Risk and benefit explained in detail.
[2017-09-21] MEDS: Enoxaparin 40 mg Syringe SC SCH (10:10)
[2017-09-21] MEDS: Metoprolol Succinate 25 mg XL Tab PO SCH (10:10)
[2017-09-21] MEDS: (Novolog Mix 70/30) Insulin Aspart/Insulin Aspar 100 units/ml SC SCH (21:29)
[2017-09-22 00:25] VITALS: RESP 20
--- NOTE | 2017-09-22 03:01 | OP ---
PROCEDURE DATE: 09/19/2017 PREOPERATIVE DIAGNOSES: 1. Ascending colon mass. 2. Abdominal pain and morbid obesity. POSTOPERATIVE DIAGNOSES: 1. Ascending colon mass, tubulovillous adenoma. 2. Morbid obesity. 3. Extensive periappendicular postinfectious adhesions. PROCEDURES DONE: 1. Robotic-assisted laparoscopic right hemicolectomy. 2. Robotic extensive lysis of adhesion in the right lower quadrant around the appendix. 3. Robotic omentectomy. 4. On-Q pain catheter pump placement. SURGEON: The procedure was done by Arian aquino MD ASSISTANTS: BRENNEN De Dios; and Zo Valenzuela, PGY-3 resident. ANESTHESIA: General endotracheal tube anesthesia. ESTIMATED BLOOD LOSS: Around 10 mL. DRAIN: A 19-Upper Sorbian Fabricio drain was placed. PATHOLOGY: 1. The ileum, appendix, cecum, ascending colon and a part of the transverse colon was sent for the pathology. 2. Omentum. INTRAOPERATIVE FINDINGS: The patient had a large right colon mass of the ascending colon. The patient had extensive postinfectious adhesion in the right lower quadrant around the appendix, and the appendix appeared to be extremely long and thickened. The patient also had thickened morbidly obese fatty omentum. It took approximately 60 to 80 minutes extra due to morbid obesity and due to the extensive pelvic and peritoneal adhesions around the appendix and the right lower quadrant. DESCRIPTION OF PROCEDURE: On intraoperative steps, this is a 71 male who was diagnosed with ascending colon mass. The patient was complaining of abdominal pain. The patient was consented for the robotic right hemicolectomy, possible open. Brought to the OR, placed supine on the operating table. After induction of anesthesia, abdomen was prepped and draped in the usual sterile fashion. The Robin catheter and the NG tube were placed. A left upper quadrant incision was made. Using the Visiport technique, the peritoneal cavity was entered, pneumoperitoneum was created. Another 4 robotic camera ports were placed in the left flank and lower abdomen. After the robot was brought in, camera arm as well as arm 1 and arm 2 were docked. The first omentum was dissected off the proximal transverse colon, and the lesser sac was entered. Dissection was carried down to mobilize the transverse colon and hepatic flexure. Now, the dissection was carried down around the cecum to mobilize it from the right lateral abdominal wall. The patient had extensive adhesions of the appendix into the pelvis as well as into the right lower quadrant. An extensive lysis of adhesion was done to dissect the ileum and the pelvis off from this extensive adhesion, and enterolysis was done. After that, the right colon dissection was continued up to the duodenum. The ileum was resected with Endo LAURIE, and the transverse colon was also resected with the Endo LAURIE. The omentum was resected up to the distal part of the transverse colon. The mesocolon was resected with a robotic vessel sealer. After that, the procedure was converted to laparoscopy. A small incision was made. The wound protector was placed, and specimen was taken out. The ileum, appendix, cecum, ascending colon and transverse colon were sent off the table for the pathology, and omentum was also taken out. The [id number] anastomosis off the ileum to the transverse colon was done, and the intraoperative Firefly was used for the proper blood supply. After that, the On-Q pain catheter pump was placed on both sides, and it was connected to the bulbs. The anastomosis was viable without any tension, and there was a good blood supply. After that, all the ports were taken out. The specimen retrieval site was closed with #1 PDS as well as interrupted Prolene sutures and skin with a 4-0 Monocryl. The 12-mm port site was closed with 0 Vicryl and skin with a 4-0 Monocryl and all the port sites. Dry sterile dressing was applied. The patient was extubated in OR and sent to the postanesthesia care unit in a stable condition. Count of instrument and gauze was correct. Arian Aranda MD JUHI
[2017-09-22] MEDS: Potassium Ch 20mEq in D5-1/2NS 1,000 ML IV SCH (03:27)
[2017-09-22] MEDS: HYDROmorphone 0.5 mg/0.5 ml ISec IVP PRN (04:56)
[2017-09-22 06:55] LABS: EOS # 3.4 K/uL (0.0-0.7); EOS % 31.8 % (0.0-4.0); HEMOGLOBIN 11.6 g/dL (12.0-18.0); LYMPH % 9.1 % (20.0-40.0); MEAN CELL VOLUME 80.4 fL (80.0-94.0); MEAN CORPUSCULAR HEMOGLOBIN 27.4 pg (27.0-31.0); MEAN CORPUSCULAR HGB CONC 34.1 g/dL (33.0-37.0); MEAN PLATELET VOLUME 9.1 fL (7.2-11.7); MONO # 0.5 K/uL (0.0-0.8); MONO % 4.5 % (0.0-10.0); NEUT # 5.9 K/uL (1.8-7.0); NEUT % 54.6 % (50.0-75.0); PLATELET COUNT 184 K/uL (130-400); RBC 4.22 Mil/uL (4.40-5.90); RED CELL DISTRIBUTION WIDTH 14.5 % (11.5-14.5); WHITE BLOOD COUNT 10.8 K/uL (4.8-10.8)
--- NOTE | 2017-09-22 07:17 | CP.PCM.PN ---
<Meenu Egan - Last Filed: 09/22/17 10:26> Subjective - Date & Time of Evaluation Date of Evaluation: 09/22/17 Time of Evaluation: 07:00 - Subjective Subjective: Medicine Progress Note: Patient was seen and examined at bedside in the AM. Patient is not in acute stress. Patient states he has mild right lower abdominal pain. Patient states has had not passed flatus or had a bowel movement yet. He states he is walking slowly with his . Patient also states he feels itchy all over which started 2 days ago. He states the certified surgical assistant gave him Benadryl and he is feeling better. He denies itching or swelling in his throat or rashes. Patient denies chest pain, shortness of breath, palpitations, fever, nausea or vomiting. Objective - Vital Signs/Intake and Output Vital Signs (last 24 hours): Temp Pulse Resp BP Pulse Ox 98.4 F 67 20 123/58 L 95 09/21/17 23:00 09/21/17 23:00 09/21/17 23:00 09/21/17 23:00 09/21/17 23:00 Intake and Output: 09/22/17 09/22/17 06:59 18:59 Intake Total 920 Output Total 880 Balance 40 - Medications Medications: Current Medications Alprazolam (Xanax) 0.5 mg PO TID PRN PRN Reason: Anxiety Aspirin (Ecotrin) 81 mg PO DAILY [facility] Last Admin: 09/21/17 10:09 Dose: 81 mg Dextrose (Dextrose 50% Inj) 0 ml IV STAT PRN; Protocol PRN Reason: Hypoglycemia Protocol Dextrose (Glutose 15) 0 gm PO ONCE PRN; Protocol PRN Reason: Hypoglycemia Protocol Enoxaparin Sodium (Lovenox) 40 mg SC DAILY [facility] Last Admin: 09/21/17 10:10 Dose: 40 mg Glucagon (Glucagen Diagnostic Kit) 0 mg IM STAT PRN; Protocol PRN Reason: Hypoglycemia Protocol Hydromorphone HCl (Dilaudid) 0.5 mg IVP Q4H PRN PRN Reason: Pain, moderate (4-7) Last Admin: 09/21/17 17:10 Dose: 0.5 mg Hydromorphone HCl (Dilaudid) 1 mg IVP Q4H PRN PRN Reason: Pain, severe (8-10) Last Admin: 09/22/17 04:56 Dose: 1 mg Dextrose (Dextrose 5% In Water 1000 Ml) 1,000 mls @ 0 mls/hr IV .Q0M PRN; Protocol; Per Protocol PRN Reason: Hypoglycemia Protocol BUPIVACAINE 0.125%/0.9% NACL (Bupivacaine-Ns 0.125% On-Q Business Support) 600 mls @ 4 mls/ hr IJ ONCE ONE Stop: 09/25/17 16:59 Potassium Chloride/Dextrose/Sod Cl (Potassium Chl 20 Meq In D5-1/2ns) 1,000 mls @ 100 mls/hr IV .Q10H [facility] Last Admin: 09/22/17 03:27 Dose: 100 mls/hr Insulin Aspart (Novolog) 0 unit SC ACHS [facility] PRN Reason: Protocol Last Admin: 09/21/17 21:25 Dose: Not Given Insulin Aspart (Novolog Mix 70/30 (70/30 Units/Ml)) 7 units SC HS [facility] Last Admin: 09/21/17 21:29 Dose: 7 units Insulin Aspart (Novolog Mix 70/30 (70/30 Units/Ml)) 14 units SC ACB [facility] Last Admin: 09/21/17 08:25 Dose: 14 units Loratadine (Claritin) 10 mg PO DAILY [facility] Last Admin: 09/21/17 15:27 Dose: 10 mg Losartan Potassium (Cozaar) 100 mg PO DAILY [facility] Last Admin: 09/21/17 10:09 Dose: 100 mg Metoprolol Succinate (Toprol Xl) 25 mg PO DAILY [facility] Last Admin: 09/21/17 10:10 Dose: 25 mg Ondansetron HCl (Zofran Inj) 4 mg IVP Q4 PRN PRN Reason: Nausea/Vomiting Rosuvastatin Calcium (Crestor) 40 mg PO HS [facility] Last Admin: 09/21/17 21:29 Dose: 40 mg Spironolactone (Aldactone) 25 mg PO DAILY [facility] Last Admin: 09/21/17 10:09 Dose: 25 mg - Labs Labs: 09/22/17 06:48 09/21/17 07:38 PT 12.5 SECONDS (9.7-12.2) H 09/19/17 07:41 INR 1.1 09/19/17 07:41 APTT 34 SECONDS (21-34) 09/19/17 07:41 - Constitutional Appears: No Acute Distress - Head Exam Head Exam: ATRAUMATIC, NORMAL INSPECTION - Eye Exam Eye Exam: absent: Normal appearance (Left eye- clouding) - ENT Exam ENT Exam: Mucous Membranes Moist - Respiratory Exam Respiratory Exam: Rales (crackles bilateral lower lobes), NORMAL BREATHING PATTERN - Cardiovascular Exam Cardiovascular Exam: REGULAR RHYTHM, +S1, +S2 - GI/Abdominal Exam GI & Abdominal Exam: Soft, Tenderness, Normal Bowel Sounds Additional comments: drain in place. - Extremities Exam Extremities Exam: Normal Inspection - Neurological Exam Neurological Exam: Alert, Awake, Oriented x3 - Psychiatric Exam Psychiatric exam: Normal Affect, Normal Mood - Skin Skin Exam: Normal Color Additional comments: abdominal dressing: clean/dry/intact Assessment and Plan - Assessment and Plan (Free Text) Assessment: 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 Stable left basilar fibrosis. - ECHO (07/05/17): LVEF 65%; mild left ventricular hypertrophy (please see report for full details) - Cardio Consult: Dr. Raphael --> help appreciated 2.) History of CABG in 2002 - Continue home medications * Losartan 100mg daily * Aspirin 81mg po daily * Metoprolol Succinate 25mg daily * Crestor 40mg po HS - ECHO (07/05/17): LVEF 65%; mild left ventricular hypertrophy (please see report for full details) 3.) History of HTN Continue home medications * Metoprolol Succinate 25mg daily * Losartan 100mg daily 4.) History of CAD - Crestor 40mg po HS - Lipid Profile (07/30/17): Triglycerides 107; Total Cholesterol 233; LDL 108; HDL 56 5.) History of DM Type II - ISS - Novolog (70/30) 30 units SC before breakfast (starting 09/22/17) - Novolog (70/30) 15 units SC bedtime (starting 09/22/17 - Accuchecks - Hypoglycemia Protocol 6.) Prophylaxis - Lovenox 40SC - SCDs - GI prophylaxis not indicated at this time Case discussed with Dr. Jeff Egan PGY-1 <Alejandro Aguilar - Last Filed: 09/22/17 17:29> Objective - Vital Signs/Intake and Output Vital Signs (last 24 hours): Temp Pulse Resp BP Pulse Ox 98 F 76 20 108/63 97 09/22/17 16:04 09/22/17 16:04 09/22/17 16:04 09/22/17 16:04 09/22/17 16:04 Intake and Output: 09/22/17 09/22/17 06:59 18:59 Intake Total 920 480 Output Total 880 300 Balance 40 180 - Medications Medications: Current Medications Alprazolam (Xanax) 0.5 mg PO TID PRN PRN Reason: Anxiety Aspirin (Ecotrin) 81 mg PO DAILY [facility] Last Admin: 09/22/17 09:31 Dose: 81 mg Dextrose (Dextrose 50% Inj) 0 ml IV STAT PRN; Protocol PRN Reason: Hypoglycemia Protocol Dextrose (Glutose 15) 0 gm PO ONCE PRN; Protocol PRN Reason: Hypoglycemia Protocol Enoxaparin Sodium (Lovenox) 40 mg SC DAILY [facility] Last Admin: 09/22/17 09:31 Dose: 40 mg Glucagon (Glucagen Diagnostic Kit) 0 mg IM STAT PRN; Protocol PRN Reason: Hypoglycemia Protocol Dextrose (Dextrose 5% In Water 1000 Ml) 1,000 mls @ 0 mls/hr IV .Q0M PRN; Protocol; Per Protocol PRN Reason: Hypoglycemia Protocol BUPIVACAINE 0.125%/0.9% NACL (Bupivacaine-Ns 0.125% On-Q Business Support) 600 mls @ 4 mls/ hr IJ ONCE ONE Stop: 09/28/17 17:59 Last Admin: 09/22/17 12:32 Dose: Not Given Insulin Aspart (Novolog) 0 unit SC ACHS [facility] PRN Reason: Protocol Last Admin: 09/22/17 16:54 Dose: 3 unit Insulin Aspart (Novolog Mix 70/30 (70/30 Units/Ml)) 30 units SC ACB [facility] Last Admin: 09/22/17 08:37 Dose: 30 units Insulin Aspart (Novolog Mix 70/30 (70/30 Units/Ml)) 15 units SC HS [facility] Loratadine (Claritin) 10 mg PO DAILY PRN PRN Reason: Allergy symptoms Losartan Potassium (Cozaar) 100 mg PO DAILY [facility] Last Admin: 09/22/17 09:31 Dose: 100 mg Metoprolol Succinate (Toprol Xl) 25 mg PO DAILY [facility] Last Admin: 09/22/17 09:31 Dose: 25 mg Ondansetron HCl (Zofran Inj) 4 mg IVP Q4 PRN PRN Reason: Nausea/Vomiting Oxycodone/Acetaminophen (Percocet 5/325 Mg Tab) 1 tab PO Q4H PRN PRN Reason: Pain, moderate (4-7) Stop: 09/25/17 10:15 Last Admin: 09/22/17 15:29 Dose: 1 tab Rosuvastatin Calcium (Crestor) 40 mg PO HS [facility] Last Admin: 09/21/17 21:29 Dose: 40 mg Spironolactone (Aldactone) 25 mg PO DAILY [facility] Last Admin: 09/22/17 09:31 Dose: 25 mg - Labs Labs: 09/22/17 06:48 09/22/17 06:48 PT 12.5 SECONDS (9.7-12.2) H 09/19/17 07:41 INR 1.1 09/19/17 07:41 APTT 34 SECONDS (21-34) 09/19/17 07:41 Attending/Attestation - Attestation I have personally seen and examined this patient.: Yes I have fully participated in the care of the patient.: Yes I have reviewed all pertinent clinical information, including history, physical exam and plan: Yes Notes (Text): 09/22/17 17:29 Patient was seen and examined at 7:30 AM 09/22/17 Exam, assessment and plan were gone over with the resident. Alejandro Aguilar D.O.
[2017-09-22 07:19] LABS: ALBUMIN 3.2 g/dL (3.5-5.0); CALCIUM 8.4 mg/dl (8.6-10.4)
[2017-09-22] MEDS ORDERED: (Novolog Mix 70/30) Insulin Aspart/Insulin Aspar 100 units/ml SC SCH ×2 (07:43→07:44)
[2017-09-22] MEDS ORDERED: DiphenhydrAMINE 50 mg/ml Inj IVP STA (08:32)
[2017-09-22] MEDS: (Novolog) Insulin Aspart, Recombinant 100 u/ml 10 ml vial SC SCH ×4 (08:37→21:21)
[2017-09-22] MEDS: (Novolog Mix 70/30) Insulin Aspart/Insulin Aspar 100 units/ml SC SCH ×2 (08:37→21:18)
[2017-09-22] MEDS ORDERED: Potassium & Sodium Phosphate PO ONE (08:45)
--- NOTE | 2017-09-22 08:49 | CP.PCM.PCO ---
Physician Communication Note - Physician Communication Note Physician Communication Note: Please see above.
[2017-09-22 08:53] LABS: EOSINOPHIL 2 % (0-4); LYMPHOCYTE 10 % (20-40); MONOCYTE 3 % (0-10); NEUTROPHIL 85 % (50-75); TOTAL CELLS COUNTED 100
[2017-09-22 08:54] LABS: HYPOCHROMIC SLIGHT; PLATELET ESTIMATE NORMAL (NORMAL); POLYCHROMIC SLIGHT
[2017-09-22] MEDS: Enoxaparin 40 mg Syringe SC SCH (09:31)
[2017-09-22] MEDS: Metoprolol Succinate 25 mg XL Tab PO SCH (09:31)
--- NOTE | 2017-09-22 11:10 | CP.PCM.PN ---
<Malena Jay - Last Filed: 09/22/17 11:07> Subjective - Date & Time of Evaluation Date of Evaluation: 09/22/17 Time of Evaluation: 08:00 - Subjective Subjective: Surgery: Dr. Aranda Pt seen and examined. No acute overnight events. Pt is seen walking around the hallway. States he feels well and pain is well controlled. He does complain of itchiness all over his body that he thinks maybe attributed to the IV dilaudid. He is tolerating CLD & had a small BM this morning. Denies flatus, N/V, F/C. Objective - Vital Signs/Intake and Output Vital Signs (last 24 hours): Temp Pulse Resp BP Pulse Ox 99.0 F 69 20 165/78 H 97 09/22/17 07:00 09/22/17 07:00 09/22/17 07:00 09/22/17 07:00 09/22/17 07:00 Intake and Output: 09/22/17 09/22/17 06:59 18:59 Intake Total 920 Output Total 880 Balance 40 - Medications Medications: Current Medications Alprazolam (Xanax) 0.5 mg PO TID PRN PRN Reason: Anxiety Aspirin (Ecotrin) 81 mg PO DAILY [facility] Last Admin: 09/22/17 09:31 Dose: 81 mg Dextrose (Dextrose 50% Inj) 0 ml IV STAT PRN; Protocol PRN Reason: Hypoglycemia Protocol Dextrose (Glutose 15) 0 gm PO ONCE PRN; Protocol PRN Reason: Hypoglycemia Protocol Enoxaparin Sodium (Lovenox) 40 mg SC DAILY [facility] Last Admin: 09/22/17 09:31 Dose: 40 mg Glucagon (Glucagen Diagnostic Kit) 0 mg IM STAT PRN; Protocol PRN Reason: Hypoglycemia Protocol Hydromorphone HCl (Dilaudid) 0.5 mg IVP Q4H PRN PRN Reason: Pain, moderate (4-7) Last Admin: 09/21/17 17:10 Dose: 0.5 mg Dextrose (Dextrose 5% In Water 1000 Ml) 1,000 mls @ 0 mls/hr IV .Q0M PRN; Protocol; Per Protocol PRN Reason: Hypoglycemia Protocol Potassium Chloride/Dextrose/Sod Cl (Potassium Chl 20 Meq In D5-1/2ns) 1,000 mls @ 100 mls/hr IV .Q10H [facility] Last Admin: 09/22/17 03:27 Dose: 100 mls/hr BUPIVACAINE 0.125%/0.9% NACL (Bupivacaine-Ns 0.125% On-Q Grading Machine Operator) 600 mls @ 4 mls/ hr IJ ONCE ONE Stop: 09/28/17 17:59 Insulin Aspart (Novolog) 0 unit SC ACHS [facility] PRN Reason: Protocol Last Admin: 09/22/17 08:37 Dose: 4 unit Insulin Aspart (Novolog Mix 70/30 (70/30 Units/Ml)) 30 units SC ACB [facility] Last Admin: 09/22/17 08:37 Dose: 30 units Insulin Aspart (Novolog Mix 70/30 (70/30 Units/Ml)) 15 units SC HS [facility] Loratadine (Claritin) 10 mg PO DAILY [facility] Last Admin: 09/21/17 15:27 Dose: 10 mg Losartan Potassium (Cozaar) 100 mg PO DAILY [facility] Last Admin: 09/22/17 09:31 Dose: 100 mg Metoprolol Succinate (Toprol Xl) 25 mg PO DAILY [facility] Last Admin: 09/22/17 09:31 Dose: 25 mg Ondansetron HCl (Zofran Inj) 4 mg IVP Q4 PRN PRN Reason: Nausea/Vomiting Oxycodone/Acetaminophen (Percocet 5/325 Mg Tab) 1 tab PO Q4H PRN PRN Reason: Pain, moderate (4-7) Stop: 09/25/17 10:15 Rosuvastatin Calcium (Crestor) 40 mg PO [facility] Last Admin: 09/21/17 21:29 Dose: 40 mg Spironolactone (Aldactone) 25 mg PO DAILY [facility] Last Admin: 09/22/17 09:31 Dose: 25 mg - Labs Labs: 09/22/17 06:48 09/22/17 06:48 PT 12.5 SECONDS (9.7-12.2) H 09/19/17 07:41 INR 1.1 09/19/17 07:41 APTT 34 SECONDS (21-34) 09/19/17 07:41 - Constitutional Appears: Well, No Acute Distress - Head Exam Head Exam: ATRAUMATIC, NORMOCEPHALIC - Eye Exam Eye Exam: Normal appearance - ENT Exam ENT Exam: Mucous Membranes Moist - Respiratory Exam Respiratory Exam: NORMAL BREATHING PATTERN - Cardiovascular Exam Cardiovascular Exam: RRR - GI/Abdominal Exam GI & Abdominal Exam: Soft, Tenderness (around incision sites, shaun drain in place w/serous ouput ). absent: Distended, Guarding - Extremities Exam Extremities Exam: Full ROM - Neurological Exam Neurological Exam: Alert, Awake, Oriented x3 - Skin Skin Exam: Dry, Warm Assessment and Plan - Assessment and Plan (Free Text) Assessment: 71M s/p robot assisted R hemicolectomy; POD#3 Plan: - will advance to FLD & monitor bowel function - DC IV pain meds & transition to PO pain meds; will replace On-Q pump - DC IVF - Monitor drain output - Medicine team on board; appreciate recs - Encourage ambulation & Incentive Spirometry - d/w Dr. Manoj Jay, PGY-3 <Arian Aranda B - Last Filed: 09/24/17 19:50> Objective - Vital Signs/Intake and Output Vital Signs (last 24 hours): Temp Pulse Resp BP Pulse Ox 98.6 F 66 20 145/68 95 09/24/17 15:10 09/24/17 15:10 09/24/17 15:10 09/24/17 15:10 09/24/17 15:10 Intake and Output: 09/24/17 09/25/17 18:59 06:59 Intake Total 700 Output Total 190 Balance 510 - Labs Labs: 09/23/17 07:56 09/23/17 07:56 PT 12.5 SECONDS (9.7-12.2) H 09/19/17 07:41 INR 1.1 09/19/17 07:41 APTT 34 SECONDS (21-34) 09/19/17 07:41 Attending/Attestation - Attestation I have personally seen and examined this patient.: Yes I have fully participated in the care of the patient.: Yes I have reviewed all pertinent clinical information, including history, physical exam and plan: Yes Notes (Text): Pt was seen and examined at bedside Agree with above note and assessment Pt is improving clinically High blood sugar Passing gas, No BM Plan d.w pt in detail
[2017-09-22] MEDS ORDERED: BUPIVACAINE 0.125%/0.9% NACL 600 ML IJ ONE (12:00)
[2017-09-22] MEDS: Oxycodone/Acetaminophen 5/325 mg Tab PO PRN ×2 (15:29→21:17)
[2017-09-23] MEDS: Oxycodone/Acetaminophen 5/325 mg Tab PO PRN ×3 (03:05→21:28)
--- NOTE | 2017-09-23 07:44 | CP.PCM.PN ---
<Meenu Egan - Last Filed: 09/23/17 08:05> Subjective - Date & Time of Evaluation Date of Evaluation: 09/23/17 Time of Evaluation: 07:00 - Subjective Subjective: Medicine Progress Note: Patient was seen and examined at bedside in the AM. Patient is not in acute stress. Patient states he has mild right lower abdominal pain. Patient states has had not passed flatus or had a bowel movement yet. Patient denies chest pain, shortness of breath, palpitations, fever, nausea or vomiting. Objective - Vital Signs/Intake and Output Vital Signs (last 24 hours): Temp Pulse Resp BP Pulse Ox 98.8 F 63 20 146/62 98 09/23/17 00:00 09/23/17 00:00 09/23/17 00:00 09/23/17 00:00 09/23/17 00:00 Intake and Output: 09/23/17 09/23/17 06:59 18:59 Intake Total 400 Output Total 330 Balance 70 - Medications Medications: Current Medications Alprazolam (Xanax) 0.5 mg PO TID PRN PRN Reason: Anxiety Aspirin (Ecotrin) 81 mg PO DAILY [facility] Last Admin: 09/22/17 09:31 Dose: 81 mg Dextrose (Dextrose 50% Inj) 0 ml IV STAT PRN; Protocol PRN Reason: Hypoglycemia Protocol Dextrose (Glutose 15) 0 gm PO ONCE PRN; Protocol PRN Reason: Hypoglycemia Protocol Enoxaparin Sodium (Lovenox) 40 mg SC DAILY [facility] Last Admin: 09/22/17 09:31 Dose: 40 mg Glucagon (Glucagen Diagnostic Kit) 0 mg IM STAT PRN; Protocol PRN Reason: Hypoglycemia Protocol Dextrose (Dextrose 5% In Water 1000 Ml) 1,000 mls @ 0 mls/hr IV .Q0M PRN; Protocol; Per Protocol PRN Reason: Hypoglycemia Protocol BUPIVACAINE 0.125%/0.9% NACL (Bupivacaine-Ns 0.125% On-Q Welder And Fitter) 600 mls @ 4 mls/ hr IJ ONCE ONE Stop: 09/28/17 17:59 Last Admin: 09/22/17 12:32 Dose: Not Given Insulin Aspart (Novolog) 0 unit SC ACHS [facility] PRN Reason: Protocol Last Admin: 09/22/17 21:21 Dose: Not Given Insulin Aspart (Novolog Mix 70/30 (70/30 Units/Ml)) 30 units SC ACB [facility] Last Admin: 09/22/17 08:37 Dose: 30 units Insulin Aspart (Novolog Mix 70/30 (70/30 Units/Ml)) 15 units SC HS [facility] Last Admin: 09/22/17 21:18 Dose: 15 units Loratadine (Claritin) 10 mg PO DAILY PRN PRN Reason: Allergy symptoms Losartan Potassium (Cozaar) 100 mg PO DAILY [facility] Last Admin: 09/22/17 09:31 Dose: 100 mg Metoprolol Succinate (Toprol Xl) 25 mg PO DAILY [facility] Last Admin: 09/22/17 09:31 Dose: 25 mg Ondansetron HCl (Zofran Inj) 4 mg IVP Q4 PRN PRN Reason: Nausea/Vomiting Oxycodone/Acetaminophen (Percocet 5/325 Mg Tab) 1 tab PO Q4H PRN PRN Reason: Pain, moderate (4-7) Stop: 09/25/17 10:15 Last Admin: 09/23/17 03:05 Dose: 1 tab Rosuvastatin Calcium (Crestor) 40 mg PO [facility] Last Admin: 09/22/17 21:17 Dose: 40 mg Spironolactone (Aldactone) 25 mg PO DAILY [facility] Last Admin: 09/22/17 09:31 Dose: 25 mg - Labs Labs: 09/22/17 06:48 09/22/17 06:48 PT 12.5 SECONDS (9.7-12.2) H 09/19/17 07:41 INR 1.1 09/19/17 07:41 APTT 34 SECONDS (21-34) 09/19/17 07:41 - Constitutional Appears: No Acute Distress - Head Exam Head Exam: ATRAUMATIC, NORMAL INSPECTION - Eye Exam Eye Exam: PERRL. absent: Normal appearance ((Left eye- clouding)) - Respiratory Exam Respiratory Exam: Rales (crackles bilateral lower lobes), NORMAL BREATHING PATTERN - Cardiovascular Exam Cardiovascular Exam: REGULAR RHYTHM, +S1, +S2 - GI/Abdominal Exam GI & Abdominal Exam: Soft, Tenderness, Normal Bowel Sounds - Extremities Exam Extremities Exam: Normal Inspection - Neurological Exam Neurological Exam: Alert, Awake, Oriented x3 - Psychiatric Exam Psychiatric exam: Normal Affect - Skin Skin Exam: Normal Color Assessment and Plan - Assessment and Plan (Free Text) Assessment: Medical team is signing off. Prescriptions for HTN and DM medications are in the chart. Please reconsult if necessary. Thank you. 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 Stable left basilar fibrosis. - ECHO (07/05/17): LVEF 65%; mild left ventricular hypertrophy (please see report for full details) - Cardio Consult: Dr. Raphael --> help appreciated 2.) History of CABG in 2002 - Continue home medications * Losartan 100mg daily * Aspirin 81mg po daily * Metoprolol Succinate 25mg daily * Crestor 40mg po HS - ECHO (07/05/17): LVEF 65%; mild left ventricular hypertrophy (please see report for full details) 3.) History of HTN Continue home medications * Metoprolol Succinate 25mg daily * Losartan 100mg daily 4.) History of CAD - Crestor 40mg po HS - Lipid Profile (07/30/17): Triglycerides 107; Total Cholesterol 233; LDL 108; HDL 56 5.) History of DM Type II - ISS - Novolog (70/30) 30 units SC before breakfast (starting 09/22/17) - Novolog (70/30) 15 units SC bedtime (starting 09/22/17 - Accuchecks - Hypoglycemia Protocol 6.) Prophylaxis - Lovenox 40SC - SCDs - GI prophylaxis not indicated at this time Case discussed with Dr. Jeff Egan PGY-1 <Alejandro Aguilar - Last Filed: 09/23/17 14:17> Objective - Vital Signs/Intake and Output Vital Signs (last 24 hours): Temp Pulse Resp BP Pulse Ox 98.3 F 74 20 122/73 97 09/23/17 07:00 09/23/17 09:16 09/23/17 07:00 09/23/17 09:16 09/23/17 07:00 Intake and Output: 09/23/17 09/23/17 06:59 18:59 Intake Total 400 Output Total 330 Balance 70 - Medications Medications: Current Medications Alprazolam (Xanax) 0.5 mg PO TID PRN PRN Reason: Anxiety Aspirin (Ecotrin) 81 mg PO DAILY [facility] Last Admin: 09/23/17 09:18 Dose: 81 mg Dextrose (Dextrose 50% Inj) 0 ml IV STAT PRN; Protocol PRN Reason: Hypoglycemia Protocol Dextrose (Glutose 15) 0 gm PO ONCE PRN; Protocol PRN Reason: Hypoglycemia Protocol Enoxaparin Sodium (Lovenox) 40 mg SC DAILY [facility] Last Admin: 09/23/17 09:14 Dose: 40 mg Glucagon (Glucagen Diagnostic Kit) 0 mg IM STAT PRN; Protocol PRN Reason: Hypoglycemia Protocol Dextrose (Dextrose 5% In Water 1000 Ml) 1,000 mls @ 0 mls/hr IV .Q0M PRN; Protocol; Per Protocol PRN Reason: Hypoglycemia Protocol BUPIVACAINE 0.125%/0.9% NACL (Bupivacaine-Ns 0.125% On-Q Welder And Fitter) 600 mls @ 4 mls/ hr IJ ONCE ONE Stop: 09/28/17 17:59 Last Admin: 09/22/17 12:32 Dose: Not Given Insulin Aspart (Novolog) 0 unit SC ACHS [facility] PRN Reason: Protocol Last Admin: 09/23/17 12:20 Dose: Not Given Insulin Aspart (Novolog Mix 70/30 (70/30 Units/Ml)) 30 units SC ACB [facility] Last Admin: 09/23/17 08:08 Dose: 30 units Insulin Aspart (Novolog Mix 70/30 (70/30 Units/Ml)) 15 units SC HS [facility] Last Admin: 09/22/17 21:18 Dose: 15 units Loratadine (Claritin) 10 mg PO DAILY PRN PRN Reason: Allergy symptoms Losartan Potassium (Cozaar) 100 mg PO DAILY [facility] Last Admin: 09/23/17 09:14 Dose: 100 mg Metoprolol Succinate (Toprol Xl) 25 mg PO DAILY [facility] Last Admin: 09/23/17 09:14 Dose: 25 mg Ondansetron HCl (Zofran Inj) 4 mg IVP Q4 PRN PRN Reason: Nausea/Vomiting Oxycodone/Acetaminophen (Percocet 5/325 Mg Tab) 1 tab PO Q4H PRN PRN Reason: Pain, moderate (4-7) Stop: 09/25/17 10:15 Last Admin: 09/23/17 03:05 Dose: 1 tab Rosuvastatin Calcium (Crestor) 40 mg PO HS [facility] Last Admin: 09/22/17 21:17 Dose: 40 mg Spironolactone (Aldactone) 25 mg PO DAILY [facility] Last Admin: 09/23/17 09:14 Dose: 25 mg - Labs Labs: 09/23/17 07:56 09/23/17 07:56 PT 12.5 SECONDS (9.7-12.2) H 09/19/17 07:41 INR 1.1 09/19/17 07:41 APTT 34 SECONDS (21-34) 09/19/17 07:41 Attending/Attestation - Attestation I have personally seen and examined this patient.: Yes I have fully participated in the care of the patient.: Yes I have reviewed all pertinent clinical information, including history, physical exam and plan: Yes Notes (Text): 09/23/17 14:16 Patient was seen and examined shortly after resident Dr. Vernon Egan. Exam, assessment and plan were gone over with Dr. Egan. Alejandro Aguilar D.O.
[2017-09-23] MEDS: (Novolog Mix 70/30) Insulin Aspart/Insulin Aspar 100 units/ml SC SCH ×2 (08:08→21:28)
[2017-09-23 08:09] LABS: HEMOGLOBIN 11.1 g/dL (12.0-18.0); MEAN CORPUSCULAR HEMOGLOBIN 27.7 pg (27.0-31.0); MEAN CORPUSCULAR HGB CONC 34.6 g/dL (33.0-37.0); MEAN PLATELET VOLUME 9.4 fL (7.2-11.7); RED CELL DISTRIBUTION WIDTH 14.3 % (11.5-14.5); WHITE BLOOD COUNT 9.4 K/uL (4.8-10.8)
[2017-09-23] MEDS: (Novolog) Insulin Aspart, Recombinant 100 u/ml 10 ml vial SC SCH ×4 (08:09→21:23)
[2017-09-23 08:33] LABS: CALCIUM 8.5 mg/dl (8.6-10.4)
--- NOTE | 2017-09-23 08:39 | CP.PCM.PCO ---
Physician Communication Note - Physician Communication Note Physician Communication Note: Please see above
[2017-09-23] MEDS: Enoxaparin 40 mg Syringe SC SCH (09:14)
[2017-09-23] MEDS: Metoprolol Succinate 25 mg XL Tab PO SCH (09:14)
--- NOTE | 2017-09-23 10:48 | CP.PCM.PN ---
<Ozzie De La Fuente - Last Filed: 09/23/17 10:45> Subjective - Date & Time of Evaluation Date of Evaluation: 09/23/17 Time of Evaluation: 10:45 - Subjective Subjective: Surgery Pt seen and examined. No acute events. Reports BM yesterday. Tolerating Soft. + amb. OnQ refilled yesterday. + void. Objective - Vital Signs/Intake and Output Vital Signs (last 24 hours): Temp Pulse Resp BP Pulse Ox 98.3 F 74 20 122/73 97 09/23/17 07:00 09/23/17 09:16 09/23/17 07:00 09/23/17 09:16 09/23/17 07:00 Intake and Output: 09/23/17 09/23/17 06:59 18:59 Intake Total 400 Output Total 330 Balance 70 - Medications Medications: Current Medications Alprazolam (Xanax) 0.5 mg PO TID PRN PRN Reason: Anxiety Aspirin (Ecotrin) 81 mg PO DAILY [facility] Last Admin: 09/23/17 09:18 Dose: 81 mg Dextrose (Dextrose 50% Inj) 0 ml IV STAT PRN; Protocol PRN Reason: Hypoglycemia Protocol Dextrose (Glutose 15) 0 gm PO ONCE PRN; Protocol PRN Reason: Hypoglycemia Protocol Enoxaparin Sodium (Lovenox) 40 mg SC DAILY [facility] Last Admin: 09/23/17 09:14 Dose: 40 mg Glucagon (Glucagen Diagnostic Kit) 0 mg IM STAT PRN; Protocol PRN Reason: Hypoglycemia Protocol Dextrose (Dextrose 5% In Water 1000 Ml) 1,000 mls @ 0 mls/hr IV .Q0M PRN; Protocol; Per Protocol PRN Reason: Hypoglycemia Protocol BUPIVACAINE 0.125%/0.9% NACL (Bupivacaine-Ns 0.125% On-Q Dry Cans Operator) 600 mls @ 4 mls/ hr IJ ONCE ONE Stop: 09/28/17 17:59 Last Admin: 09/22/17 12:32 Dose: Not Given Insulin Aspart (Novolog) 0 unit SC ACHS [facility] PRN Reason: Protocol Last Admin: 09/23/17 08:09 Dose: Not Given Insulin Aspart (Novolog Mix 70/30 (70/30 Units/Ml)) 30 units SC ACB [facility] Last Admin: 09/23/17 08:08 Dose: 30 units Insulin Aspart (Novolog Mix 70/30 (70/30 Units/Ml)) 15 units SC [facility] Last Admin: 09/22/17 21:18 Dose: 15 units Loratadine (Claritin) 10 mg PO DAILY PRN PRN Reason: Allergy symptoms Losartan Potassium (Cozaar) 100 mg PO DAILY [facility] Last Admin: 09/23/17 09:14 Dose: 100 mg Metoprolol Succinate (Toprol Xl) 25 mg PO DAILY [facility] Last Admin: 09/23/17 09:14 Dose: 25 mg Ondansetron HCl (Zofran Inj) 4 mg IVP Q4 PRN PRN Reason: Nausea/Vomiting Oxycodone/Acetaminophen (Percocet 5/325 Mg Tab) 1 tab PO Q4H PRN PRN Reason: Pain, moderate (4-7) Stop: 09/25/17 10:15 Last Admin: 09/23/17 03:05 Dose: 1 tab Rosuvastatin Calcium (Crestor) 40 mg PO [facility] Last Admin: 09/22/17 21:17 Dose: 40 mg Spironolactone (Aldactone) 25 mg PO DAILY [facility] Last Admin: 09/23/17 09:14 Dose: 25 mg - Labs Labs: 09/23/17 07:56 09/23/17 07:56 PT 12.5 SECONDS (9.7-12.2) H 09/19/17 07:41 INR 1.1 09/19/17 07:41 APTT 34 SECONDS (21-34) 09/19/17 07:41 - Constitutional Appears: No Acute Distress - Head Exam Head Exam: ATRAUMATIC, NORMAL INSPECTION, NORMOCEPHALIC - Eye Exam Eye Exam: EOMI, Normal appearance, PERRL Pupil Exam: NORMAL ACCOMODATION, PERRL - ENT Exam ENT Exam: Mucous Membranes Moist, Normal Exam - Neck Exam Neck Exam: Full ROM, Normal Inspection. absent: Lymphadenopathy - Respiratory Exam Respiratory Exam: Clear to Ausculation Bilateral, NORMAL BREATHING PATTERN - Cardiovascular Exam Cardiovascular Exam: REGULAR RHYTHM, +S1, +S2. absent: Murmur - GI/Abdominal Exam GI & Abdominal Exam: Soft, Normal Bowel Sounds. absent: Distended, Tenderness Additional comments: Incision C/D/I - Extremities Exam Extremities Exam: Full ROM, Normal Capillary Refill, Normal Inspection. absent : Joint Swelling, Pedal Edema - Back Exam Back Exam: NORMAL INSPECTION - Neurological Exam Neurological Exam: Alert, Awake, CN II-XII Intact, Normal Gait, Oriented x3 - Psychiatric Exam Psychiatric exam: Normal Affect, Normal Mood - Skin Skin Exam: Dry, Intact, Normal Color, Warm Assessment and Plan - Assessment and Plan (Free Text) Assessment: POD 4 s/p Robotic lap R hemicolectomy Drains 650cc ss /24hrs VSS -Soft diet -Ambulate -IS DVT/GIppx -Medical management Will DW Dr. Aranda <Arian Aranda - Last Filed: 09/24/17 20:13> Objective - Vital Signs/Intake and Output Vital Signs (last 24 hours): Temp Pulse Resp BP Pulse Ox 98.6 F 66 20 145/68 95 09/24/17 15:10 09/24/17 15:10 09/24/17 15:10 09/24/17 15:10 09/24/17 15:10 Intake and Output: 09/24/17 09/25/17 18:59 06:59 Intake Total 700 Output Total 190 Balance 510 - Labs Labs: 09/23/17 07:56 09/23/17 07:56 PT 12.5 SECONDS (9.7-12.2) H 09/19/17 07:41 INR 1.1 09/19/17 07:41 APTT 34 SECONDS (21-34) 09/19/17 07:41 Attending/Attestation - Attestation I have personally seen and examined this patient.: Yes I have fully participated in the care of the patient.: Yes I have reviewed all pertinent clinical information, including history, physical exam and plan: Yes Notes (Text): Pt was seen and examined at bedside Agree with above note and assessment Pt is improving clinically Advance diet to purred diet Plan d.w pt in detail
[2017-09-24] MEDS: Oxycodone/Acetaminophen 5/325 mg Tab PO PRN (05:47)
[2017-09-24] MEDS: (Novolog) Insulin Aspart, Recombinant 100 u/ml 10 ml vial SC SCH ×3 (08:25→17:09)
[2017-09-24] MEDS: (Novolog Mix 70/30) Insulin Aspart/Insulin Aspar 100 units/ml SC SCH (08:48)
[2017-09-24] MEDS: Metoprolol Succinate 25 mg XL Tab PO SCH (09:06)
[2017-09-24] MEDS: Enoxaparin 40 mg Syringe SC SCH (09:06)
--- NOTE | 2017-09-24 14:04 | CP.PCM.DIS ---
Provider - Provider Date of Admission: 09/17/17 10:38 Attending physician: Arian Aranda MD Consults: Medicine - Hospitalist Service Time Spent in preparation of Discharge (in minutes): 35 Diagnosis - Discharge Diagnosis (1) S/P colectomy Status: Acute (2) Abdominal pain Status: Resolved (3) CAD (coronary artery disease) Status: Chronic (4) Colonic mass Status: Resolved (5) HTN (hypertension) Status: Chronic Hospital Course - Lab Results Lab Results: Most Recent Lab Values WBC 9.4 K/uL (4.8-10.8) 09/23/17 07:56 RBC 4.00 Mil/uL (4.40-5.90) L 09/23/17 07:56 Hgb 11.1 g/dL (12.0-18.0) L 09/23/17 07:56 Hct 32.0 % (35.0-51.0) L 09/23/17 07:56 MCV 80.0 fL (80.0-94.0) 09/23/17 07:56 MCH 27.7 pg (27.0-31.0) 09/23/17 07:56 MCHC 34.6 g/dL (33.0-37.0) 09/23/17 07:56 RDW 14.3 % (11.5-14.5) 09/23/17 07:56 Plt Count 181 K/uL (130-400) 09/23/17 07:56 MPV 9.4 fL (7.2-11.7) 09/23/17 07:56 Neut % (Auto) 54.6 % (50.0-75.0) 09/22/17 06:48 Lymph % (Auto) 9.1 % (20.0-40.0) L 09/22/17 06:48 Edmunds % (Auto) 4.5 % (0.0-10.0) 09/22/17 06:48 Eos % (Auto) 31.8 % (0.0-4.0) H 09/22/17 06:48 Baso % (Auto) 0.0 % (0.0-2.0) 09/22/17 06:48 Neut # (Auto) 5.9 K/uL (1.8-7.0) 09/22/17 06:48 Lymph # (Auto) 1.0 K/uL (1.0-4.3) 09/22/17 06:48 Edmunds # (Auto) 0.5 K/uL (0.0-0.8) 09/22/17 06:48 Eos # (Auto) 3.4 K/uL (0.0-0.7) H 09/22/17 06:48 Baso # (Auto) 0.0 K/uL (0.0-0.2) 09/22/17 06:48 Neutrophils % (Manual) 85 % (50-75) H 09/22/17 06:48 Lymphocytes % (Manual) 10 % (20-40) L 09/22/17 06:48 Monocytes % (Manual) 3 % (0-10) 09/22/17 06:48 Eosinophils % (Manual) 2 % (0-4) 09/22/17 06:48 Platelet Estimate Normal (NORMAL) 09/22/17 06:48 Polychromasia Slight 09/22/17 06:48 Hypochromasia (manual) Slight 09/22/17 06:48 PT 12.5 SECONDS (9.7-12.2) H 09/19/17 07:41 INR 1.1 09/19/17 07:41 APTT 34 SECONDS (21-34) 09/19/17 07:41 Sodium 138 mmol/L (132-148) 09/23/17 07:56 Potassium 4.1 mmol/L (3.6-5.2) 09/23/17 07:56 Chloride 107 mmol/L (98-107) 09/23/17 07:56 Carbon Dioxide 25 mmol/L (22-30) 09/23/17 07:56 Anion Gap 11 (10-20) 09/23/17 07:56 BUN 12 mg/dL (9-20) 09/23/17 07:56 Creatinine 1.5 mg/dL (0.8-1.5) 09/23/17 07:56 Est GFR ( Amer) 56 09/23/17 07:56 Est GFR (Non-Af Amer) 46 09/23/17 07:56 POC Glucose (mg/dL) 208 mg/dL (65-110) H 09/24/17 11:22 Random Glucose 89 mg/dL (75-110) 09/23/17 07:56 Calcium 8.5 mg/dl (8.6-10.4) L 09/23/17 07:56 Phosphorus 2.9 mg/dL (2.5-4.5) 09/23/17 07:56 Magnesium 1.9 mg/dL (1.6-2.3) 09/23/17 07:56 Total Bilirubin 0.5 mg/dL (0.2-1.3) 09/22/17 06:48 AST 27 U/L (17-59) 09/22/17 06:48 ALT 26 U/L (21-72) 09/22/17 06:48 Alkaline Phosphatase 70 U/L (38-126) 09/22/17 06:48 Total Protein 6.2 g/dL (6.3-8.3) L 09/22/17 06:48 Albumin 3.2 g/dL (3.5-5.0) L 09/22/17 06:48 Globulin 3.1 gm/dL (2.2-3.9) 09/22/17 06:48 Albumin/Globulin Ratio 1.0 (1.0-2.1) 09/22/17 06:48 Urine Color Yellow (YELLOW) 09/17/17 10:56 Urine Clarity Clear (Clear) 09/17/17 10:56 Urine pH 6.0 (5.0-8.0) 09/17/17 10:56 Ur Specific [place] 1.009 (1.003-1.030) 09/17/17 10:56 Urine Protein 1+ mg/dL (NEGATIVE) H 09/17/17 10:56 Urine Glucose (UA) 3+ mg/dL (Normal) H 09/17/17 10:56 Urine Ketones Negative mg/dL (NEGATIVE) 09/17/17 10:56 Urine Blood Negative (NEGATIVE) 09/17/17 10:56 Urine Nitrate Negative (NEGATIVE) 09/17/17 10:56 Urine Bilirubin Negative (NEGATIVE) 09/17/17 10:56 Urine Urobilinogen Normal mg/dL (0.2-1.0) 09/17/17 10:56 Ur Leukocyte Esterase Neg Pratibha/uL (Negative) 09/17/17 10:56 Urine WBC (Auto) < 1 /hpf (0-5) 05/28/18 10:56 Urine RBC (Auto) 1 /hpf (0-3) 09/17/17 10:56 Hyaline Casts 0-2 /lpf (0-2) 09/17/17 10:56 Blood Type O POSITIVE 09/19/17 07:41 Antibody Screen Negative 09/19/17 07:41 - Hospital Course Hospital Course: 09/17 Patient Admitted to our service. He went to the OR for an extended right hemicolectomy, he handled the procedure well. He had an uneventful recovery. Started on liquids on POD 1 tolerated it well. Started on full liquids POD3. Patient had high volume serous output in his shaun which has decreased. Patient has moved bowels and passed gas currently tolerating full liquid diet. He is clear for discharge only to have full liquids or purred diet at home until seen by Dr. Aranda in office. Discharge Exam - Head Exam Head Exam: ATRAUMATIC, NORMAL INSPECTION, NORMOCEPHALIC - Eye Exam Eye Exam: EOMI, Normal appearance - Respiratory Exam Respiratory Exam: NORMAL BREATHING PATTERN, UNREMARKABLE - Cardiovascular Exam Cardiovascular Exam: +S1, +S2 - GI/Abdominal Exam GI & Abdominal Exam: Soft. absent: Distended, Firm, Guarding, Hernia - Neurological Exam Neurological exam: Alert, Oriented x3 - Psychiatric Exam Psychiatric exam: Normal Affect, Normal Mood Discharge Plan - Discharge Medications Prescriptions: Atorvastatin [Lipitor] 1 tab PO DAILY #30 tab Insulin Aspart/Insulin Aspar [Novolog Mix 70/30 (70/30 units/ml)] 15 units SC HS 30 Days unit Insulin Aspart/Insulin Aspar [Novolog Mix 70/30 (70/30 units/ml)] 30 units SC ACB 30 Days unit Losartan [Cozaar] 1 tab PO DAILY #30 tab Metoprolol Succinate [Toprol XL] 25 mg PO DAILY #30 tab Spironolactone [Aldactone] 25 mg PO DAILY #30 tab - Follow Up Plan Condition: STABLE Disposition: HOME/ ROUTINE Instructions: Low Salt Diet, Controlling Your Blood Pressure Through Lifestyle , Coronary Heart Disease (DC), Acute Abdominal Pain (DC), Hypertension (DC), Hypertension (GEN) Additional Instructions: Follow up with Dr. Aranda in 10 days call his office to schedule appointment. No heavy lifting 4 weeks. Only liquid or pured diet. Referrals: Arian Aranda MD [Staff Provider] -
[2017-09-24 16:01] VITALS: BP 145/68; PULSE 66; TEMP 98.6; O2SAT 95
== END 2017-09-24 17:51 | disposition home or self-care (01) | DRG 331 ==
LOC: C.ER 09:59 → C.9E 10:38 → C.5S 11:44
PROVIDERS: ADMIT Surgery Surgical Critical Care; ATTEND Surgery Surgical Critical Care
PROC: 0DTF4ZZ Resection of Right Large Intestine, Percutaneous Endoscopic Approach (ICD-10-PCS; principal; 2017-09-17)
PROC: 0DNW4ZZ Release Peritoneum, Percutaneous Endoscopic Approach (ICD-10-PCS; 2017-09-17)
PROC: 0DBU4ZZ Excision of Omentum, Percutaneous Endoscopic Approach (ICD-10-PCS; 2017-09-17)
PROC: 8E0W4CZ Robotic Assisted Procedure of Trunk Region, Percutaneous Endoscopic Approach (ICD-10-PCS; 2017-09-17)
PROC: 0W9G40Z Drainage of Peritoneal Cavity with Drainage Device, Percutaneous Endoscopic Approach (ICD-10-PCS; 2017-09-17)
DX: D12.2 Benign neoplasm of ascending colon (principal); K66.0 Peritoneal adhesions (postprocedural) (postinfection); E66.01 Morbid (severe) obesity due to excess calories; E11.65 Type 2 diabetes mellitus with hyperglycemia; E78.00 Pure hypercholesterolemia, unspecified; I10 Essential (primary) hypertension; E11.649 Type 2 diabetes mellitus with hypoglycemia without coma; I25.10 Atherosclerotic heart disease of native coronary artery without angina pectoris; Z79.4 Long term (current) use of insulin; Z79.82 Long term (current) use of aspirin; Z82.49 Family history of ischemic heart disease and other diseases of the circulatory system; Z83.3 Family history of diabetes mellitus; Z95.1 Presence of aortocoronary bypass graft